=== PATIENT | female | born 1995 | race African-American/Black ===

== ENCOUNTER 2017-03-16 16:50 | Emergency (ER) | payer MEDICAID | END 2017-03-16 17:14 | disposition left against medical advice (07) | LOC: ER 16:50 | DX: Z53.21 Procedure and treatment not carried out due to patient leaving prior to being seen by health care provider (principal) ==

== ENCOUNTER 2017-04-09 10:42 | Emergency (ER) | payer MEDICAID ==
[2017-04-09 10:48] VITALS: BP 118/60
[2017-04-09] MEDS ORDERED: ACETAMINOPHEN 325 MG TABLET PO ONE (11:25)
--- NOTE | 2017-04-09 11:25 | ER Document Report ---
ED Medical Screen (RME) - General Chief Complaint: Abdominal Pain Stated Complaint: STOMACH PAIN Time Seen by Provider: 04/09/17 11:14 Mode of Arrival: Ambulatory Information source: Patient Notes: This is a 22-year-old female with a prior history of a first trimester miscarriage who is currently at 8+2 by LMP who presents for evaluation of lower abdominal pain and cramping. She states that she has had mild cramping for the past few days but that this morning she had an episode of severe abdominal pain. Also she states she has not had a bowel movement in 3 days. She has had mild nausea no vomiting. No fevers or chills. She denies any vaginal bleeding or discharge. She denies dysuria. She states that she has not had an ultrasound to this point in this . [facility]. She is taking vitamins. I have greeted and performed a rapid initial assessment of this patient. A comprehensive ED assessment and evaluation of the patient, analysis of test results and completion of the medical decision making process will be conducted by additional ED providers. TRAVEL OUTSIDE OF THE [place] IN LAST 30 DAYS: No - Related Data Allergies/Adverse Reactions: No Known Allergies Allergy (Verified 10/30/16 10:30) Past Medical History - Social History Family history: Reviewed & Not Pertinent Neurological Medical History: Reports: Hx Seizures Renal/ Medical History: Denies: Hx Peritoneal Dialysis - Immunizations Immunizations up to date: Yes Hx Diphtheria, Pertussis, Tetanus Vaccination: Yes Physical Exam - Vital signs Vitals: Temp Pulse Resp BP Pulse Ox 98.7 F 77 14 118/60 100 04/09/17 10:45 04/09/17 10:45 04/09/17 10:45 04/09/17 10:45 04/09/17 10:45 Course - Vital Signs Vital signs: Temp Pulse Resp BP Pulse Ox 98.7 F 77 14 118/60 100 04/09/17 10:45 04/09/17 10:45 04/09/17 10:45 04/09/17 10:45 04/09/17 10:45
[2017-04-09 11:55] LABS: ABSOLUTE EOSINOPHILS # (AUTO) 0.1 10^3/uL (0.0-0.6); ABSOLUTE MONOCYTES (AUTO) 0.6 10^3/uL (0.1-1.4); ABSOLUTE NEUT (AUTO) 2.9 10^3/uL (1.7-8.2); BASOPHILS % (AUTO) 0.7 % (0-2); EOSINOPHILS % (AUTO) 1.6 % (0-6); HEMATOCRIT 34.5 % (36.0-47.0); HEMOGLOBIN 11.1 g/dL (12.0-15.5); HGB HCT DIFFERENCE -1.2; LYMPHOCYTES % (AUTO) 35.6 % (13-45); MEAN CORPUSCULAR HEMOGLOBIN 21.5 pg (27.0-33.4); MEAN CORPUSCULAR VOLUME 67 fl (80-97); MONOCYTES % (AUTO) 11.2 % (3-13); RED BLOOD COUNT 5.13 10^6/uL (3.72-5.28); RED CELL DISTRIBUTION WIDTH 15.1 % (11.5-14.0); SEGMENTED NEUTROPHILS % (AUTO) 50.9 % (42-78); WHITE BLOOD COUNT 5.6 10^3/uL (4.0-10.5)
[2017-04-09 12:14] LABS: ALANINE AMINOTRANSFERASE 19 U/L (9-52); ALBUMIN 4.1 g/dL (3.5-5.0); ALKALINE PHOSPHATASE 45 U/L (38-126); ANION GAP 10 (5-19); ASPARTATE AMINO TRANSFERASE 16 U/L (14-36); BILIRUBIN,DIRECT 0.2 mg/dL (0.0-0.4); BILIRUBIN,TOTAL 0.4 mg/dL (0.2-1.3); BLOOD UREA NITROGEN 7 mg/dL (7-20); CALCIUM 9.5 mg/dL (8.4-10.2); CARBON DIOXIDE 24 mmol/L (22-30); CHLORIDE 103 mmol/L (98-107); CREATININE RESULT 0.61 mg/dL (0.52-1.25); GLUCOSE 78 mg/dL (75-110); POTASSIUM 4.1 mmol/L (3.6-5.0); SODIUM 137.2 mmol/L (137-145); TOTAL PROTEIN 7.3 g/dL (6.3-8.2)
--- NOTE | 2017-04-09 12:43 | RADIOLOGY REPORT (SQ) ---
EXAM DESCRIPTION: U/S OB TRANSVAG W/DOPPLER COMPLETED DATE/TIME: 04/09/2017 12:32 pm REASON FOR STUDY: lower abdominal pain, rule out ectopic COMPARISON: None. TECHNIQUE: Transvaginal static and realtime grayscale images acquired of the pelvis. Additional елена cted spectral and color Doppler images recorded. All images stored on PACs. bHCG: Not available. LIMITATIONS: None. FINDINGS: FETUS: Living intrauterine . EGA: 7 WEEKS 5 DAYS GILBERT: 11/21/2017 FHR: 157 beats per minute. SUBCHORIONIC BLEED: No. SIZE OF BLEED: Not applicable. UTERUS: No masses. No anomalies. CERVICAL LENGTH: 2.6 cm. Closed. RIGHT ADNEXA: Normal ovary with normal vascular flow. No adnexal free fluid. No adnexal masses. LEFT ADNEXA: Normal ovary with normal vascular flow. No adnexal free fluid. No adnexal masses. FREE FLUID: None. OTHER: No other significant finding. IMPRESSION: LIVING INTRAUTERINE . EGA 7 WEEKS 5 DAYS. Trimester of : First - 0 to 13 weeks. TECHNICAL DOCUMENTATION: JOB ID: [id number] [employer]- All Rights Reserved
[2017-04-09 13:41] LABS: APPEARANCE,URINE CLEAR; BILIRUBIN,URINE NEGATIVE (NEGATIVE); GLUCOSE, URINE NEGATIVE (NEGATIVE); KETONES,URINE 20 mg/dL (NEGATIVE); LEUKOCYTE ESTERASE,URINE NEGATIVE (NEGATIVE); NITRITE,URINE NEGATIVE (NEGATIVE); PROTEIN,URINE NEGATIVE (NEGATIVE); URINE SPECIFIC GRAVITY 1.015; UROBILINOGEN,URINE NEGATIVE mg/dL (<2.0)
--- NOTE | 2017-04-09 14:04 | ER Document Report ---
ED GI/ - General Chief Complaint: Abdominal Pain Stated Complaint: STOMACH PAIN Time Seen by Provider: 04/09/17 11:14 Mode of Arrival: Ambulatory Notes: There is a 8 week 22-year-old female presents emergency department complaining of abdominal pain and nausea for a couple of days. Admits to patient for the past couple of days as well. She denies any vaginal bleeding, vaginal discomfort, lower pelvic pain. She states that her abdominal pain is on the left side of her abdomen with occasional radiation into her stomach. Patient states that she has not followed up with [facility] yet and is established to see them on April 26. She has not had an ultrasound to confirm the . Denies any other past medical problems TRAVEL OUTSIDE OF THE [place] IN LAST 30 DAYS: No - Related Data Allergies/Adverse Reactions: No Known Allergies Allergy (Verified 10/30/16 10:30) Past Medical History - General Information source: Patient - Social History Smoking Status: Never Smoker Chew tobacco use (# tins/day): No Frequency of alcohol use: None Drug Abuse: None Family History: Reviewed & Not Pertinent Patient has suicidal ideation: No Patient has homicidal ideation: No Neurological Medical History: Reports: Hx Seizures Renal/ Medical History: Denies: Hx Peritoneal Dialysis - Immunizations Immunizations up to date: Yes Hx Diphtheria, Pertussis, Tetanus Vaccination: Yes Review of Systems - Review of Systems Gastrointestinal: See HPI Genitourinary: No symptoms reported Female Genitourinary: No symptoms reported -: Yes All other systems reviewed and negative Physical Exam - Vital signs Vitals: Temp Pulse Resp BP Pulse Ox 98.7 F 77 14 118/60 100 04/09/17 10:45 04/09/17 10:45 04/09/17 10:45 04/09/17 10:45 04/09/17 10:45 - Notes Notes: PHYSICAL EXAM GENERAL: Alert, interacts well. HEAD: Normocephalic, atraumatic. LUNGS: Clear to auscultation bilaterally, no wheezes, rales, or rhonchi. No respiratory distress. HEART: Regular rate and rhythm. No murmurs, gallops, or rubs. ABDOMEN: Soft, nondistended, nontender. No guarding, rebound, or rigidity.. Bowel sounds present in all 4 quadrants. Female exam deferred EXTREMITIES: Moves all 4 extremities spontaneously. No edema, radial and dorsalis pedis pulses 2/4 bilaterally. No cyanosis. NEUROLOGICAL: Alert and oriented x4. Normal speech. PSYCH: Normal affect, normal mood. SKIN: Warm, dry, normal turgor. No rashes or lesions noted. Course - Re-evaluation Re-evalutation: 04/09/17 18:21 Is a 22-year-old female who is hemodynamic stable, no acute distress and afebrile. Transvaginal ultrasound confirms an intrauterine at 7 weeks gestation with a heart rate of 157. No evidence of subchorionic bleed. Patient is otherwise stable for discharge home with instruction to follow-up with primary care and [facility] - Vital Signs Vital signs: Temp Pulse Resp BP Pulse Ox 98.7 F 77 14 118/60 100 04/09/17 10:45 04/09/17 10:45 04/09/17 10:45 04/09/17 10:45 04/09/17 10:45 - Laboratory Result Diagrams: 04/09/17 11:40 04/09/17 11:40 Laboratory results interpreted by me: 04/09/17 04/09/17 04/09/17 11:40 11:40 13:24 Hgb 11.1 L Hct 34.5 L MCV 67 L MCH 21.5 L RDW 15.1 H Beta HCG, Quant 33247.00 H Urine Ketones 20 H - Diagnostic Test Radiology reviewed: Reports reviewed Discharge - Discharge Clinical Impression: Abdominal pain during Condition: Good Disposition: HOME, SELF-CARE Additional Instructions: ABDOMINAL PAIN: There are many causes of abdominal pain. Pain can mean a serious problem requiring surgery (such as appendicitis). It can also be an innocent problem that goes away on its own (such as a viral infection). Often, time must pass to determine the cause of pain. The physician does not feel that hospitalization is necessary, at present. Things may change within the next 24 hours. Call the doctor or come back for re- examination if any problems occur, such as: (1) Pain that becomes more severe, steady, or becomes concentrated in one specific area. Also, pain that is more severe with movement or coughing. (2) Vomiting that persists or becomes more frequent. (3) Blood in the vomitus, urine, or bowel movements. Blood in the stool may have a tarry or black appearance. (4) Shaking chills or fever greater than 100 degrees F. (5) The abdomen becomes more distended or swollen. (6) Bowel movements cease. (7) Failure to improve as expected. NORMAL EXAM AND WORKUP: At this time, your examination and workup show no significant abnormality. No significant abnormal physical findings are noted. All laboratory, EKG, and imaging (x-ray, CT scans, ultrasound) studies that were ordered show no significant abnormality. Although your examination and all studies that were ordered showed no significant abnormal finding, there are no examinations and no studies that are 100% accurate. There is always the possibility that some abnormality could exist and not be detected with physical examination or within the limits and capabilities of laboratory and other studies. You should return or follow up as you were instructed on your visit today for further evaluation if your symptoms do not resolve. FOLLOW-UP CARE: If you have been referred to a physician for follow-up care, call the physician s office for an appointment as you were instructed or within the next two days. If you experience worsening or a significant change in your symptoms, notify the physician immediately or return to the Emergency Department at any time for re-evaluation. Forms: Parent Work Note, Return to Work Referrals: [facility] [Provider Group] - Follow up as needed
== END 2017-04-09 14:27 | disposition home or self-care (01) ==
LOC: ER 10:42
DX: R10.9 Unspecified abdominal pain (principal); R11.0 Nausea
CPT/HCPCS: 99284; 36415; 84702; 85025; 80053; 81001; 76817; 93976; J3490

== ENCOUNTER 2017-05-24 12:08 | Emergency (ER) | payer MEDICAID ==
[2017-05-24 12:13] VITALS: BP 127/56
--- NOTE | 2017-05-24 12:26 | ER Document Report ---
ED GI/ - General Chief Complaint: Abdominal Pain Stated Complaint: FALL,STOMACH PAIN Time Seen by Provider: 05/24/17 12:24 Notes: Patient is approximately 15 weeks and fell down about 5 steps yesterday afternoon. She landed primarily on her left side. This morning, she is complaining of pain in the left side and points to the left lateral abdominal region, not pelvic region. She has not felt the baby move today and is concerned about her . She has not had any vaginal bleeding. Patient has a seizure disorder and is on Vimpat and Keppra. No other significant history. TRAVEL OUTSIDE OF THE [place] IN LAST 30 DAYS: No - Related Data Allergies/Adverse Reactions: No Known Allergies Allergy (Verified 05/24/17 12:13) Past Medical History - Social History Family History: Reviewed & Not Pertinent Patient has suicidal ideation: No Patient has homicidal ideation: No Neurological Medical History: Reports: Hx Seizures Renal/ Medical History: Denies: Hx Peritoneal Dialysis - Immunizations Immunizations up to date: Yes Hx Diphtheria, Pertussis, Tetanus Vaccination: Yes Physical Exam - Vital signs Vitals: Temp Pulse Resp BP Pulse Ox 98.1 F 82 20 127/56 H 98 05/24/17 12:12 05/24/17 12:12 05/24/17 12:12 05/24/17 12:12 05/24/17 12:12 Course - Vital Signs Vital signs: Temp Pulse Resp BP Pulse Ox 98.1 F 82 20 127/56 H 98 05/24/17 12:12 05/24/17 12:12 05/24/17 12:12 05/24/17 12:12 05/24/17 12:12
--- NOTE | 2017-05-24 12:34 | ER Document Report ---
ED Medical Screen (RME) - General Chief Complaint: Abdominal Pain Stated Complaint: FALL,STOMACH PAIN Time Seen by Provider: 05/24/17 12:24 Notes: Patient is approximately 15 weeks and fell down about 5 steps yesterday afternoon. She landed primarily on her left side. This morning, she is complaining of pain in the left side and points to the left lateral abdominal region, not pelvic region. She has not felt the baby move today and is concerned about her . She has not had any vaginal bleeding. Patient has a seizure disorder and is on Vimpat and Keppra. No other significant history TRAVEL OUTSIDE OF THE [place] IN LAST 30 DAYS: No - Related Data Allergies/Adverse Reactions: No Known Allergies Allergy (Verified 05/24/17 12:13) Past Medical History - Social History Family history: Reviewed & Not Pertinent Neurological Medical History: Reports: Hx Seizures Renal/ Medical History: Denies: Hx Peritoneal Dialysis - Immunizations Immunizations up to date: Yes Hx Diphtheria, Pertussis, Tetanus Vaccination: Yes Physical Exam - Vital signs Vitals: Temp Pulse Resp BP Pulse Ox 98.1 F 82 20 127/56 H 98 05/24/17 12:12 05/24/17 12:12 05/24/17 12:12 05/24/17 12:12 05/24/17 12:12 Course - Vital Signs Vital signs: Temp Pulse Resp BP Pulse Ox 98.1 F 82 20 127/56 H 98 05/24/17 12:12 05/24/17 12:12 05/24/17 12:12 05/24/17 12:12 05/24/17 12:12
--- NOTE | 2017-05-24 12:58 | ER Document Report ---
ED GI/ - General Chief Complaint: Abdominal Pain Stated Complaint: FALL,STOMACH PAIN Time Seen by Provider: 05/24/17 12:24 Mode of Arrival: Ambulatory Information source: Patient Notes: 11-year-old female presents to ED for fall at 15 weeks . She just wants the baby checked out she fell down the steps yesterday afternoon. She landed on her left side. Time she does not complain of any pain she states she was concerned for the baby. She not denies any vaginal bleeding. Patient has a history of a seizure disorder and is on Vimpat and Keppra. Patient is 1 para 0 TRAVEL OUTSIDE OF THE [place] IN LAST 30 DAYS: No - HPI Patient complains to provider of: Abdominal pain - left abdominal pain level 1 unless pushed then becomes a 2 or 3 Onset: Yesterday Quality of pain: Other - sore Severity at maximum: Moderate - when pushed Severity in ED: Mild Pain Level: 1 Location: LUQ Vaginal bleeding (Compared to normal period): None heart tones (bpm): 152 Associated symptoms: None Exacerbated by: Movement, Other - palpaitetn Relieved by: Denies Similar symptoms previously: No Recently seen / treated by doctor: Yes - Related Data Allergies/Adverse Reactions: No Known Allergies Allergy (Verified 05/24/17 12:13) Past Medical History - General Information source: Patient - Social History Smoking Status: Never Smoker Cigarette use (# per day): No Chew tobacco use (# tins/day): No Smoking Education Provided: No Frequency of alcohol use: None Drug Abuse: None Lives with: Family Family History: Reviewed & Not Pertinent Patient has suicidal ideation: No Patient has homicidal ideation: No - Past Medical History Cardiac Medical History: Reports: None Pulmonary Medical History: Reports: None EENT Medical History: Reports: None Neurological Medical History: Reports: Hx Seizures Endocrine Medical History: Reports: None Renal/ Medical History: Reports: None Malignancy Medical History: Reports: None GI Medical History: Reports: None Musculoskeltal Medical History: Reports None Skin Medical History: Reports None Psychiatric Medical History: Reports: None Traumatic Medical History: Reports: None Infectious Medical History: Reports: None Surgical Hx: Negative - Immunizations Immunizations up to date: Yes Hx Diphtheria, Pertussis, Tetanus Vaccination: Yes Review of Systems - Review of Systems Constitutional: No symptoms reported EENT: No symptoms reported Cardiovascular: No symptoms reported Respiratory: No symptoms reported Gastrointestinal: Abdominal pain - luq Genitourinary: No symptoms reported Female Genitourinary: No symptoms reported Musculoskeletal: No symptoms reported Skin: No symptoms reported. denies: Change in color Hematologic/Lymphatic: No symptoms reported Neurological/Psychological: No symptoms reported -: Yes All other systems reviewed and negative Physical Exam - Vital signs Vitals: Temp Pulse Resp BP Pulse Ox 98.1 F 82 20 127/56 H 98 05/24/17 12:12 05/24/17 12:12 05/24/17 12:12 05/24/17 12:12 05/24/17 12:12 Interpretation: Normal - General General appearance: Appears well, Alert - HEENT Head: Normocephalic, Atraumatic Eyes: Normal Pupils: PERRL - Respiratory Respiratory status: No respiratory distress Chest status: Nontender Breath sounds: Normal Chest palpation: Normal - Cardiovascular Rhythm: Regular Heart sounds: Normal auscultation Murmur: No - Abdominal Inspection: Normal Distension: No distension Bowel sounds: Normal Tenderness: Tender - to palpatient Organomegaly: No organomegaly - Back Back: Normal, Nontender - Extremities General upper extremity: Normal inspection, Nontender, Normal color, Normal ROM , Normal temperature General lower extremity: Normal inspection, Nontender, Normal color, Normal ROM , Normal temperature, Normal weight bearing. No: Dudley's sign - Neurological Neuro grossly intact: Yes Cognition: Normal Orientation: AAOx4 Christophe Coma Scale Eye Opening: Spontaneous Christophe Coma Scale Verbal: Oriented Brook Coma Scale Motor: Obeys Commands Christophe Coma Scale Total: 15 Speech: Normal Motor strength normal: LUE, RUE, LLE, RLE Sensory: Normal - Psychological Associated symptoms: Normal affect, Normal mood - Skin Skin Temperature: Warm Skin Moisture: Dry Skin Color: Normal Course - Vital Signs Vital signs: Temp Pulse Resp BP Pulse Ox 98.1 F 82 20 127/56 H 98 05/24/17 12:12 05/24/17 12:12 05/24/17 12:12 05/24/17 12:12 05/24/17 12:12 Discharge - Discharge Clinical Impression: Fall (on) (from) other stairs and steps, initial encounter, minimal abdominal pain Condition: Stable Disposition: HOME, SELF-CARE Additional Instructions: CONTUSION: Your injury has resulted in a contusion -- a crushing of the deep tissues. No injury to important structures was detected during the physician's exam. Contusions vary in the amount of pain they cause, and in the length of time required for healing. Typically, the area will become bruised, and will remain painful to touch for two or three weeks. However, most patients are back to working and playing within a few days. After the initial period of rest and cold-packs, your symptoms (together with the doctor's recommendations) will determine how rapidly you can get back to full activity. Usually this means "do what feels okay, but don't do things that hurt." If re-examination was recommended, it's important to follow up as instructed. Call the doctor or return any time if pain increases, if swelling becomes severe, if you develop numbness or weakness in an injured extremity, or if any other alarming symptoms occur. USE OF TYLENOL (ACETAMINOPHEN): Acetaminophen may be taken for pain relief or fever control. It's much safer than aspirin, offering a wider range of "safe" dosages. It is safe during . Some brand names are Tylenol, Panadol, Datril, Anacin 3, Tempra, and Liquiprin. Acetaminophen can be repeated every four hours. The following are maximum recommended dosages: WEIGHT Dose Drops Elixir Chewable( 80mg) (LBS.) drprs=droppers tsp=teaspoon 6 40 mg 0.4 ml (1/2) 6-11 80 mg 0.8 ml (full) tsp 1 tab 12-16 120 mg 1 1/2 drprs 3/4 tsp 1 1/2 tabs 17-23 160 mg 2 drprs 1 tsp 2 tabs 24-30 240 mg 3 drprs 1 1/2 tsp 3 tabs 30-35 320 mg 2 tsp 4 tabs 36-41 360 mg 2 1/4 tsp 4 1/2 tabs 42-47 400 mg 2 1/2 tsp 5 tabs 48-53 480 mg 3 tsp 6 tabs 54-59 520 mg 3 1/4 tsp 6 1/2 tabs 60-64 560 mg 3 1/2 tsp 7 tabs 65-70 600 mg 3 3/4 tsp 7 1/2 tabs 71-76 640 mg 4 tsp 8 tabs 77-82 720 mg 4 1/2 tsp 9 tabs 83-88 800 mg 5 tsp 10 tabs >89 pounds or adults 650 mg to 900 mg Acetaminophen can be repeated every four hours. Maximum dose not to exceed 4000 mg a day. These maximum recommended dosages are slightly higher than the dosages written on the product container, but these dosages are very safe and below the toxic dosage for acetaminophen. Follow up with your [facility] or the ED if you develop any vaginal bleeding increase in pain. FOLLOW-UP CARE: If you have been referred to a physician for follow-up care, call the physician s office for an appointment as you were instructed or within the next two days. If you experience worsening or a significant change in your symptoms, notify the physician immediately or return to the Emergency Department at any time for re-evaluation. Forms: Elevated Blood Pressure Referrals: [facility] [Provider Group] - Follow up as needed
== END 2017-05-24 13:05 | disposition home or self-care (01) ==
LOC: ER 12:08
DX: R10.9 Unspecified abdominal pain (principal); Z3A.15 15 weeks gestation of pregnancy; W10.9XXA Fall (on) (from) unspecified stairs and steps, initial encounter; G40.909 Epilepsy, unspecified, not intractable, without status epilepticus; Z79.899 Other long term (current) drug therapy
CPT/HCPCS: 99283

== ENCOUNTER 2017-10-02 20:01 | Outpatient (CLI) | payer MEDICAID ==
[2017-10-02 20:30] LABS: AMORPHOUS SEDIMENT,URINE TRACE /HPF; APPEARANCE,URINE CLOUDY; BILIRUBIN,URINE NEGATIVE (NEGATIVE); GLUCOSE, URINE NEGATIVE (NEGATIVE); KETONES,URINE NEGATIVE (NEGATIVE); LEUKOCYTE ESTERASE,URINE NEGATIVE (NEGATIVE); NITRITE,URINE NEGATIVE (NEGATIVE); PROTEIN,URINE NEGATIVE (NEGATIVE)
[2017-10-02 20:33] LABS: AMNISURE (ROM) NEGATIVE (NEGATIVE)
[2017-10-02 20:45] LABS: URINE BARBITURATES SCREEN NEGATIVE; URINE METHADONE SCREEN NEGATIVE; URINE OPIATES LOW NEGATIVE; URINE PHENCYCLIDINE SCREEN NEGATIVE
--- NOTE | 2017-10-02 21:16 | Non Stress Test Report ---
Non Stress Test Datetime Report Generated by CPN: 10/02/2017 21:16 DEMOGRAPHIC EGA NST: 33.2 INDICATION Indication for Study: Ordered by Provider MONITORING Monitor Explained: Monitor Explained; Test Explained; Patient Verbalized Understanding Time on Monitor: 10/02/2017 20:19 Time off Monitor: 10/02/2017 21:07 NST Duration: 48 NST INTERVENTIONS NST Interventions: PO Hydration; Reposition Patient Physician Notified NST: Dr. Morales BABY A: [id number] BABY A Movement : Present Contraction Frequency : 0 FHR Baseline : 130 Accelerations : 15X15 Decelerations : None Variability : Moderate 6-25bpm NST Review: Meets Criteria for Reactive NST NST Review and Verified By : Uvaldo Bedolla RN NST Results: Reactive NST REPORT Report Trigger: Send Report
== END 2017-10-02 21:15 | disposition home or self-care (01) ==
LOC: LC 20:01
PROVIDERS: ATTEND Obstetrics & Gynecology
DX: O47.03 False labor before 37 completed weeks of gestation, third trimester (principal); Z3A.33 33 weeks gestation of pregnancy
CPT/HCPCS: 59025; 80307; 81001; 84112

== ENCOUNTER 2017-11-14 09:54 | Outpatient (CLI) | payer MEDICAID ==
[2017-11-14 10:33] LABS: APPEARANCE,URINE SLIGHTLY-CLOUDY; BILIRUBIN,URINE NEGATIVE (NEGATIVE); COLOR,URINE YELLOW; GLUCOSE, URINE NEGATIVE (NEGATIVE); KETONES,URINE NEGATIVE (NEGATIVE); LEUKOCYTE ESTERASE,URINE NEGATIVE (NEGATIVE); NITRITE,URINE NEGATIVE (NEGATIVE); PROTEIN,URINE NEGATIVE (NEGATIVE); URINE SPECIFIC GRAVITY 1.006; UROBILINOGEN,URINE NEGATIVE mg/dL (<2.0)
[2017-11-14 10:49] LABS: URINE AMPHETAMINES SCREEN NEGATIVE; URINE BARBITURATES SCREEN NEGATIVE; URINE BENZODIAZEPINES SCREEN NEGATIVE; URINE COCAINE SCREEN NEGATIVE; URINE METHADONE SCREEN NEGATIVE; URINE PHENCYCLIDINE SCREEN NEGATIVE
[2017-11-14 10:50] LABS: URINE MARIJUANA (THC) SCREEN NEGATIVE
--- NOTE | 2017-11-14 11:18 | L&D Progress Notes ---
PROGRESS NOTES Datetime Report Generated by CPN: 11/14/2017 11:18 PROGRESS NOTE Comment: 22 yo presents with pressure and contractions EDC 11/18/17 EGA 39.4 history of seizure disorder on Keppra reports last episode small seizure a few weeks ago seen by neuro ctxs- 1 seen uterine irritability ft/ 50/-3 per RN appt tomorrow at office d/c home with instructions/ fkc/ labor precautions FETUS A Monitoring: External US Variability: Moderate 6-25bpm Accelerations: 15X15 SIGNATURE SIGNATURE: [id number] SIGNATURE: [id number] Assignment: Brinda Landon MD Signature: with User ID: Shadi : with User ID: [email or web address]
--- NOTE | 2017-11-14 11:40 | Non Stress Test Report ---
Non Stress Test Datetime Report Generated by CPN: 11/14/2017 11:40 DEMOGRAPHIC EGA NST: 39.3 INDICATION Indication for Study: Ordered by Provider Indication for Study (NST) Other: labor check MONITORING Monitor Explained: Monitor Explained; Test Explained; Patient Verbalized Understanding Time on Monitor: 11/14/2017 10:20 Time off Monitor: 11/14/2017 11:13 NST Duration: 53 NST INTERVENTIONS NST Interventions: PO Hydration Physician Notified NST: A. Emmel CNM BABY A: [id number] BABY A Movement : Present Contraction Frequency : none FHR Baseline : 145 Accelerations : 15X15 Decelerations : None Variability : Moderate 6-25bpm NST Review: Meets Criteria for Reactive NST NST Review and Verified By : Jose Manuel Haas RN NST Results: Reactive NST REPORT Report Trigger: Send Report
== END 2017-11-14 11:30 | disposition home or self-care (01) ==
LOC: LC 09:54
PROVIDERS: ATTEND Student in an Organized Health Care Education/Training Program
PROC: 4A1HXCZ Monitoring of Products of Conception, Cardiac Rate, External Approach (ICD-10-PCS; principal; 2017-11-14)
DX: O47.1 False labor at or after 37 completed weeks of gestation (principal); Z3A.39 39 weeks gestation of pregnancy
CPT/HCPCS: 59025; 80307; 81005

== ENCOUNTER 2017-11-19 13:43 | Inpatient (IN) | payer MEDICAID ==
[2017-11-19] MEDS ORDERED: RINGERS SOLUTION,LACTATED 1,000 ML IV PRN (13:59)
[2017-11-19 15:01] LABS: APPEARANCE,URINE SLIGHTLY-CLOUDY; BILIRUBIN,URINE NEGATIVE (NEGATIVE); COLOR,URINE YELLOW; GLUCOSE, URINE NEGATIVE (NEGATIVE); KETONES,URINE NEGATIVE (NEGATIVE); LEUKOCYTE ESTERASE,URINE TRACE (NEGATIVE); NITRITE,URINE NEGATIVE (NEGATIVE); PROTEIN,URINE NEGATIVE (NEGATIVE); URINE SPECIFIC GRAVITY 1.005; UROBILINOGEN,URINE NEGATIVE mg/dL (<2.0)
[2017-11-19 15:17] LABS: URINE AMPHETAMINES SCREEN NEGATIVE; URINE BARBITURATES SCREEN NEGATIVE; URINE BENZODIAZEPINES SCREEN NEGATIVE; URINE COCAINE SCREEN NEGATIVE; URINE MARIJUANA (THC) SCREEN NEGATIVE; URINE METHADONE SCREEN NEGATIVE; URINE PHENCYCLIDINE SCREEN NEGATIVE
[2017-11-19] MEDS ORDERED: OXYTOCIN/NORMAL SALINE 20 UNIT/1,000 ML RTUINJ ONE (17:13)
[2017-11-19] MEDS ORDERED: MISOPROSTOL 0.2 MG TABLET ONE (17:13)
[2017-11-19] MEDS ORDERED: LIDOCAINE 1% INJ-PF (10 MG/ML) 30 ML SDV ONE (17:13)
[2017-11-19] MEDS: OXYTOCIN/NORMAL SALINE 20 UNIT/1,000 ML RTUINJ IV PRN ×2 (17:55→22:01)
[2017-11-19] MEDS ORDERED: PROMETHAZINE HCL INJ 25 MG/1 ML VIAL IV ONE (18:09)
[2017-11-19] MEDS ORDERED: NALBUPHINE HCL INJ 10 MG/1 ML AMPULE INJ ONE (18:09)
[2017-11-19] MEDS ORDERED: ONDANSETRON HCL INJ/PF 4 MG/2 ML SDV IV ONE (18:12)
[2017-11-19] MEDS ORDERED: NALBUPHINE HCL INJ 10 MG/1 ML AMPULE ONE (18:13)
[2017-11-19] MEDS ORDERED: PROMETHAZINE HCL INJ 25 MG/1 ML VIAL ONE (18:13)
[2017-11-19] MEDS ORDERED: ONDANSETRON HCL INJ/PF 4 MG/2 ML SDV ONE (18:14)
[2017-11-19] MEDS ORDERED: DIPH/PERTUSS(ACELL)/TETANUS VAC/PF 0.5 ML SYR (>=10YO) IM PRN ×2 (21:36→22:52)
[2017-11-19] MEDS ORDERED: DIBUCAINE 1% OINTMENT 28 GM TP PRN ×2 (21:36→22:52)
[2017-11-19] MEDS ORDERED: ZOLPIDEM TARTRATE 5 MG TABLET PO PRN ×2 (21:36→22:52)
[2017-11-19] MEDS ORDERED: PSEUDOEPHEDRINE HCL 30 MG TABLET PO PRN ×2 (21:36→22:52)
[2017-11-19] MEDS ORDERED: NA PHOS,M-B/NA PHOS,DI-BA (ADULT) 133 ML ENEMA PR PRN ×2 (21:36→22:52)
[2017-11-19] MEDS ORDERED: MAGNESIUM HYDROXIDE SUSP 30 ML UDCUP PO PRN ×2 (21:36→22:52)
[2017-11-19] MEDS ORDERED: MEASLES,MUMPS&RUBELLA VACC/PF 0.5 ML VIAL SUBCUT PRN ×2 (21:36→22:52)
[2017-11-19] MEDS ORDERED: BENZOCAINE/MENTHOL AEROSOL SPRAY 56 ML TOP PRN ×2 (21:36→22:52)
[2017-11-19] MEDS ORDERED: DIPHENHYDRAMINE HCL 25 MG CAPSULE PO PRN ×2 (21:36→22:52)
[2017-11-19] MEDS ORDERED: OXYTOCIN/NORMAL SALINE 20 UNIT/1,000 ML RTUINJ IV PRN (21:36)
[2017-11-19] MEDS ORDERED: GLYCERIN/WITCH HAZEL LEAF 1 EACH MED..PAD TP PRN ×2 (21:36→22:52)
[2017-11-19] MEDS ORDERED: ACETAMINOPHEN 650 MG SUPP.RECT PR PRN ×2 (21:36→22:52)
[2017-11-19] MEDS ORDERED: PROMETHAZINE HCL 25 MG TABLET PO PRN ×2 (21:36→22:52)
[2017-11-19] MEDS ORDERED: PROMETHAZINE HCL 25 MG SUPP.RECT PR PRN ×2 (21:36→22:52)
[2017-11-19] MEDS ORDERED: PROMETHAZINE HCL INJ 25 MG/1 ML VIAL IV PRN ×2 (21:36→22:52)
[2017-11-19] MEDS ORDERED: FAMOTIDINE 20 MG TABLET PO SCH (22:00)
[2017-11-19] MEDS ORDERED: IBUPROFEN 800 MG TABLET PO SCH (22:00)
--- NOTE | 2017-11-19 22:33 | Delivery Summary ---
Del Sum A-C Datetime Report Generated by CPN: 11/19/2017 22:33 DELIVERY PERSONNEL DELIVERY PERSONNEL: [id number] Delivery Doctor:: Alfredo Louis CNM Labor and Delivery Nurse:: Ophelia Hager RNshot polisher Nurse:: Ruby Sosa RN [employer] Assistant Principal/SERVICE DEPARTMENT MANAGER: Lilliana Semar, SUPERVISOR [employer] MATERNAL INFORMATION Delivery Anesthesia: None Medications After Delivery: Pitocin Bolus-Please Comment; Pitocin Drip 20 Units/1000ml NSS Estimated Blood Loss (ml): 300 Maternal Complications: None Provider Comments: delivery of viable male apgars 5/7 bulb suctioned on perineum LUKE to abdomen tactile stimulaton elicits spont cry nursery nurse at [facility] placenta intact - delivered le right superficial labial tear repaired with 3 interrupted stitches- 3.0 chromic gut EBL 300 cc hemostasis achieved LABOR SUMMARY EDC: 11/18/2017 00:00 No. Babies in Womb: 1 Attempted: No Labor Anesthesia: None LABOR INFORMATION Reason for Induction: Not Applicable Onset of Labor: 11/19/2017 17:48 Complete Dilatation: 11/19/2017 20:53 Oxytocin: Augmentation Group B Beta Strep: neg Steroids Given: None Reason Steroids Not Administered: Not Applicable MEMBRANES Membranes Rupture Method: Spontaneous Rupture of Membranes: 11/19/2017 15:00 Length of Rupture (hr): 6.05 Amniotic Fluid Color: Clear Amniotic Fluid Amount: Moderate STAGES OF LABOR Stage 1 hr: 3 Stage 1 min: 5 Stage 2 hr: 0 Stage 2 min: 10 Stage 3 hr: 0 Stage 3 min: 2 Total Time in Labor hr: 3 Total Time in Labor min: 17 VAGINAL DELIVERY Laceration Repair Note: right labial laceration x 3 interrupted stitches CSECTION DELIVERY Primary Indication: N/A Secondary Indication: N/A CSection Incidence: N/A Labor: N/A Elective: N/A CSection Incision: N/A BABY A INFORMATION Delivery Date/Time: 11/19/2017 21:03 Method of Delivery: Vaginal Born in Route : No : N/A Forceps: N/A Vacuum Extraction: N/A Shoulder Dystocia : No PRESENTATION/POSITION BABY A Presentation: Cephalic Cephalic Presentation: Vertex Vertex Position: Right Occipital Anterior Breech Presentation: N/A PLACENTA INFORMATION BABY A Placenta Delivery Time : 11/19/2017 21:05 Placenta Method of Delivery: Spontaneous Placenta Status: Delivered SCORES BABY A Heart Rate 1 min: >100 bpm Resp Effort 1 min: Slow, Irregular Reflex Irritability 1 min: Grimace Muscle Tone 1 min: Some Flexion of Extremities Color 1 min: Blue/Pale Resuscitation Effort 1 min: Tactile Stimulation SCORE 1 MIN: 5 Heart Rate 5 min: >100 bpm Resp Effort 5 min: Slow, Irregular Reflex Irritability 5 min: Grimace Muscle Tone 5 min: Some Flexion of Extremities Color 5 min: Body [place], Extremities Blue Resuscitation Effort 5 min: Tactile Stimulation; PPV/NCPAP SCORE 5 MIN: 6 Heart Rate 10 min: >100 bpm Resp Effort 10 min: Good Cry Reflex Irritability 10 min: Cough or Sneeze or Pulls Away Muscle Tone 10 min: Active Motion Color 10 min: Completely [place] Resuscitation Effort 10 min: N/A SCORE 10 MIN: 10 INFANT INFORMATION BABY A Gestational Age at Delivery: 40.1 Gestational Status: Full Term- 39- 40.6 Weeks Infant Outcome : Liveborn Infant Condition : Stable Infant Sex: Male IDENTIFICATION BABY A Infant Verification Date/Time: 11/19/2017 21:09 ID Band Number: [id number] Mother's Name Verified: Yes Infant RN Verifying : Rebecca Garcia RN Additional Verifying Personnel: DDominic Amrit WEIGHT/LENGTH BABY A Birthweight (gm): 3180 Weight (lb): 7 Infant Weight (oz): 0 Length (in): 20.25 Infant Length (cm): 51.44 CORD INFORMATION BABY A No. Cord Vessels: 3 Nuchal Cord : N/A Cord Blood Taken: Yes-For Eval (Mom's Blood Type - or O+) Suction: Mouth; Nose ASSESSMENT BABY A Infant Complications: None Physical Findings at Delivery: Molding of the Head Respirations: Grunting Skin to Skin: No Customer Support Analyst/ALS Called : No Infant Care By: ViktoriaDominic Srikanthalonso RN/B. Richard RN Transferred To: Nursery BABY B INFORMATION : N/A SIGNATURES Assignment: Neel Aragon MD Signature: with User ID: [email or web address] : with User ID: [email or web address]
[2017-11-19] MEDS ORDERED: ACETAMINOPHEN WITH CODEINE #3 TABLET PO PRN ×2 (22:52)
--- NOTE | 2017-11-20 00:17 | Admission Physical ---
Datetime Report Generated by CPN: 11/20/2017 00:17 CURRENT ADMISSION Chief Complaint: Uterine Contractions Indication for Induction: Postterm, Intrauterine Admit Plan: Admit to Unit; Initiate Labor Augmentation Protocol ALLERGIES Medication Allergies: No Medication Allergies: No Known Allergies (05/24/2017) Latex: No Latex Allergies Food Allergies: None Environmental Allergies: None OBSTETRICAL HISTORY EDC: 11/18/2017 00:00 : 1 Para: 0 Term: 0 : 0 SAB: 0 IAB: 0 Ectopic: 0 Livin Cesareans: 0 VBACs: 0 Multiple Births: 0 Gestational Diabetes: No Rh Sensitization: No Incompetent Cervix: No OTIS: No Infertility: No ART Treatment: No Uterine Anomaly: No IUGR: No Hx Previous C/S: No Macrosomia: No Hx Loss/Stillborn: No PIH: No Hx : No Placenta Previa/Abruption: No Depression/PP Depression: No PTL/PROM: No Post Hemorrhage: No Current Procedures: Ultrasound Obstetrical History Comments: G1 - Current SEE RECORDS Alcohol: No Marijuana : No Cocaine: No Other Illicit Drugs: No Cigarettes: Never Smoker. [id number] MEDICAL HISTORY Diabetes: No Blood Transfusion: No Pulmonary Disease (Asthma, TB): No Breast Disease: No Hypertension: No University Dean Surgery: No Heart Disease: No Hosp/Surgery: No Autoimmune Disorder: No Anesthetic Complications: No Kidney Disease: No Abnormal Pap Smear: No Neuro/Epilepsy: Yes Psychiatric Disorders: No Other Medical Diseases: No Hepatitis/Liver Disease: No Significant Family History: No Varicosities/Phlebitis: No Trauma/Violence : No Thyroid Dysfunction: No Medical History Comments: Seizures INFECTIOUS HISTORY Gonorrhea: No Genital Herpes: No Chlamydia: No Tuberculosis: No Syphilis: No Hepatitis: No HIV/AIDS Exposure: No Rash or Viral Illness: No HPV: No PHYSICAL EXAM General: Normal HEENT: Normal Neurologic: Normal Thyroid: Normal Heart: Normal Lungs: Normal Breast: Normal Back: Normal Abdomen: Normal Genitourinary Exam: Normal Extremities: Normal DTRs: Normal Pelvic Type: Adequate Vital Signs: Reviewed MEMBRANES Membranes: Ruptured Amniotic Fluid Color: Clear FETUS A EGA: 40.1 Monitoring: External US FHR- Baseline: 130 Variability: Moderate 6-25bpm Accelerations: 15X15 Decelerations: None FHR Category: Category I Admit Comment: 22 yo admitted for srom with exam EDC 11/18/17 by lmp ad confirmed by 7 w 5 day u/s abdomen nontender FHts 130s average variability cvx 4/80/0 clear fluid spontaneous rupture seizure disorder- none this / followed by neurologist/ no meds poc and history reviewed with pt and family pain management prn anticipate admit PLANS FOR LABOR AND DELIVERY Labor and Delivery: None Pain Management: Epidural Feeding Preference: Both Benefit of Breast Feed Discussed: Yes Circumcision: Yes INFORMED CONSENT Assignment: Neel Aragon MD Signature: with User ID: [email or web address] : with User ID: [email or web address]
[2017-11-20] MEDS: IBUPROFEN 800 MG TABLET PO SCH ×3 (06:01→21:45)
[2017-11-20 07:15] LABS: HEMATOCRIT 29.7 % (36.0-47.0); HEMOGLOBIN 9.3 g/dL (12.0-15.5); MEAN CORPUSCULAR HEMOGLOBIN 21.9 pg (27.0-33.4); MEAN CORPUSCULAR HGB CONC 31.3 g/dL (32.0-36.0); MEAN CORPUSCULAR VOLUME 70 fl (80-97); PLATELET COUNT 156 10^3/uL (150-450); RED BLOOD COUNT 4.25 10^6/uL (3.72-5.28); RED CELL DISTRIBUTION WIDTH 17.4 % (11.5-14.0)
--- NOTE | 2017-11-20 09:12 | PDOC PROGRESS REPORT ---
Subjective-OB Subjective: Post Delivery Day: 22 year old. Denies any needs at this time Doing well, no c/o, hsb at BS, voiding, ambulating, scant lochia Physical Exam (OB) Vital Signs: Temp Pulse Resp BP Pulse Ox 97.9 F 66 15 125/67 100 11/20/17 08:22 11/20/17 08:22 11/20/17 08:22 11/20/17 08:22 11/20/17 08:22 Intake & Output 11/19/17 11/20/17 11/21/17 06:59 06:59 06:59 Intake Total 300 Balance 300 Weight 90.7 kg - Lochia Lochia Amount: Scant < 10 ml Lochia Color: Rubra/Red - Abdomen Description: Soft, Round Hernia Present: No Fundal Description: Firm, Midline Fundal Height: u/u - u/2 Objective-Diagnostic Laboratory: 11/20/17 07:07 11/19/17 11/19/17 11/20/17 13:56 15:56 07:07 WBC 17.0 H RBC 4.25 Hgb 9.3 L Hct 29.7 L MCV 70 L MCH 21.9 L MCHC 31.3 L RDW 17.4 H Plt Count 156 Urine Color YELLOW Urine Appearance SLIGHTLY-CLOUDY Urine pH 6.0 Ur Specific [place] 1.005 Urine Protein NEGATIVE Urine Glucose (UA) NEGATIVE Urine Ketones NEGATIVE Urine Blood SMALL H Urine Nitrite NEGATIVE Ur Leukocyte Esterase TRACE H Blood Type B POSITIVE Antibody Screen NEGATIVE Assessment and Plan(PN) - Assessment and Plan (1) Normal vaginal delivery Is this a current diagnosis for this admission?: Yes - Time Spent with Patient Time with patient: Less than 15 minutes Medications reviewed and adjusted accordingly: Yes - Disposition Within: within 24 hours
[2017-11-20] MEDS: PRENATAL VITAMIN W DHA CAPSULE PO SCH (09:54)
[2017-11-20] MEDS ORDERED: DOCUSATE SODIUM 100 MG CAPSULE PO SCH (10:00)
[2017-11-20] MEDS ORDERED: SENNOSIDES/DOCUSATE 8.6-50 MG 1 EACH TABLET PO SCH (10:00)
[2017-11-20] MEDS ORDERED: FERROUS SULFATE 325 MG TABLET PO SCH (10:00)
[2017-11-20] MEDS ORDERED: PRENATAL VITAMIN W DHA CAPSULE PO SCH (10:00)
[2017-11-20] MEDS: SENNOSIDES/DOCUSATE 8.6-50 MG 1 EACH TABLET PO SCH (11:09)
[2017-11-20] MEDS: FERROUS SULFATE 325 MG TABLET PO SCH ×2 (11:09→17:33)
[2017-11-20] MEDS: FAMOTIDINE 20 MG TABLET PO SCH ×2 (11:09→21:45)
[2017-11-20] MEDS: DOCUSATE SODIUM 100 MG CAPSULE PO SCH ×2 (11:09→17:33)
[2017-11-21] MEDS: IBUPROFEN 800 MG TABLET PO SCH ×2 (05:57→14:03)
[2017-11-21] MEDS: FAMOTIDINE 20 MG TABLET PO SCH (09:25)
[2017-11-21] MEDS: FERROUS SULFATE 325 MG TABLET PO SCH (09:33)
[2017-11-21] MEDS: DOCUSATE SODIUM 100 MG CAPSULE PO SCH (09:33)
[2017-11-21] MEDS: SENNOSIDES/DOCUSATE 8.6-50 MG 1 EACH TABLET PO SCH (09:33)
[2017-11-21] MEDS: PRENATAL VITAMIN W DHA CAPSULE PO SCH (09:33)
[2017-11-21 11:29] VITALS: BP 125/63
--- NOTE | 2017-11-21 13:56 | PDOC DISCHARGE SUMMARY ---
Final Diagnosis Discharge Date: 11/21/17 - Final Diagnosis (1) Anemia affecting first Is this a current diagnosis for this admission?: Yes (2) Normal vaginal delivery Is this a current diagnosis for this admission?: Yes Discharge Data - Discharge Medication Prescriptions: Ibuprofen [Motrin 800 mg Tablet] 800 mg PO Q8HP PRN #30 tablet PRN Reason: Docusate Sodium [Colace 100 mg Capsule] 100 mg PO BID #60 capsule Ferrous Sulfate [Feosol 325 mg Tablet] 325 mg PO BID #60 tablet Home Medications: Levetiracetam [Keppra] 500 mg PO DAILY 11/14/17 Phenyleph/Mineral Oil/Petrolat [Preparation H Ointment] 1 11/14/17 Pnv 102/Iron/Folate 1/Dss/Dha [Vitafol Fe+ Docusate Combo Pck] 1 tab PO DAILY [id number]/Iron/Lmfolate/Algal [Vinate Dha Rf Gelcap] 1 each PO DAILY 11/19/17 Docusate Sodium [Colace 100 mg Capsule] 100 mg PO BID #60 capsule 11/21/17 Ferrous Sulfate [Feosol 325 mg Tablet] 325 mg PO BID #60 tablet 11/21/17 Ibuprofen [Motrin 800 mg Tablet] 800 mg PO Q8HP PRN #30 tablet 11/21/17 Reason(s) for Admission: PROM Procedures: NST, Ultrasound Intrapartum Procedure(s): Spontaneous Vaginal Delivery Complication(s): Laceration-Labial - Diagnosis Test Laboratory: Temp Pulse Resp BP Pulse Ox 97.9 F 68 19 122/65 100 11/21/17 08:27 11/21/17 08:27 11/21/17 08:27 11/21/17 08:27 11/21/17 08:27 11/19/17 11/20/17 13:56 07:07 RBC 4.25 Hgb 9.3 L Hct 29.7 L Urine Opiates Screen NEGATIVE - Discharge information/Instructions Discharge Activity: Activity As Tolerated, Balance Activity w/Rest, No Lifting Over 10 Pounds, Pelvic Rest, Slowly Increase Activity, No tub bath, Walk Frequently Discharge Diet: As Tolerated Disposition: HOME, SELF-CARE Follow up with: [facility] in: 4, Weeks - also needs to follow with neurologist as scheduled.
== END 2017-11-21 15:42 | disposition home or self-care (01) | DRG 775 ==
LOC: LC 13:43 → LR 15:14 → 2S 23:36
PROVIDERS: ADMIT Obstetrics & Gynecology Gynecology; ATTEND Obstetrics & Gynecology Gynecology
PROC: 10E0XZZ Delivery of Products of Conception, External Approach (ICD-10-PCS; principal; 2017-11-19)
PROC: 0HQ9XZZ Repair Perineum Skin, External Approach (ICD-10-PCS; 2017-11-19)
PROC: 3E0234Z Introduction of Serum, Toxoid and Vaccine into Muscle, Percutaneous Approach (ICD-10-PCS; 2017-11-21)
DX: O48.0 Post-term pregnancy (principal); O99.354 Diseases of the nervous system complicating childbirth; G40.909 Epilepsy, unspecified, not intractable, without status epilepticus; O70.0 First degree perineal laceration during delivery; Z3A.40 40 weeks gestation of pregnancy; Z37.0 Single live birth; Z23 Encounter for immunization
CPT/HCPCS: 36415; 80307; 81005; 85027; 86850; 86900; 86901; 90715; J2300; J2405; J2550; J2590; J3490

== ENCOUNTER 2018-01-03 09:15 | Emergency (ER) | payer MEDICAID ==
[2018-01-03 09:20] VITALS: BP 122/67
--- NOTE | 2018-01-03 09:45 | ER Document Report ---
ED General - General Chief Complaint: Vaginal Bleeding Stated Complaint: VAGINAL BLEEDING Time Seen by Provider: 01/03/18 09:23 Mode of Arrival: Ambulatory Information source: Patient Notes: 22 yr old female presents after her vaginal delivery 2 months ago with complaints of her first menses. Pt notes it was pink spotting, then heavy bleeding noted. . Pt called her obgyn office and they told her to come here instead. pt is asymptomatic otherwise TRAVEL OUTSIDE OF THE [place] IN LAST 30 DAYS: No - HPI Onset: Last week Onset/Duration: Persistent Quality of pain: No pain Severity: Mild Pain Level: Denies Associated symptoms: None Exacerbated by: Denies Relieved by: Denies Similar symptoms previously: Yes Recently seen / treated by doctor: Yes - Related Data Allergies/Adverse Reactions: No Known Allergies Allergy (Verified 01/03/18 09:17) Past Medical History - Social History Smoking Status: Never Smoker Cigarette use (# per day): No Chew tobacco use (# tins/day): No Smoking Education Provided: No Family History: Reviewed & Not Pertinent Neurological Medical History: Reports: Hx Seizures Renal/ Medical History: Denies: Hx Peritoneal Dialysis - Immunizations Immunizations up to date: Yes Hx Diphtheria, Pertussis, Tetanus Vaccination: Yes Review of Systems - Review of Systems Notes: REVIEW OF SYSTEMS: CONSTITUTIONAL : Denies fever, chills, or sweats. Denies recent illness. EENT: Denies eye, ear, throat, or mouth pain or symptoms. Denies nasal or sinus congestion or discharge. Denies throat, tongue, or mouth swelling or difficulty swallowing. CARDIOVASCULAR: Denies chest pain. Denies palpitations or racing or irregular heart beat. Denies ankle edema. RESPIRATORY: Denies cough, cold, or chest congestion. Denies shortness of breath, difficulty breathing, or wheezing. GASTROINTESTINAL: Denies abdominal pain or distention. Denies nausea, vomiting , or diarrhea. Denies blood in vomitus, stools, or per rectum. Denies black, tarry stools. Denies constipation. GENITOURINARY: Denies difficulty urinating, painful urination, burning, frequency, blood in urine, or discharge. FEMALE GENITOURINARY: admits ot intermittent vaginal bleeding MUSCULOSKELETAL: Denies back or neck pain or stiffness. Denies joint pain or swelling. SKIN: Denies rash, lesions or sores. HEMATOLOGIC : Denies easy bruising or bleeding. LYMPHATIC: Denies swollen, enlarged glands. NEUROLOGICAL: Denies confusion or altered mental status. Denies passing out or loss of consciousness. Denies dizziness or lightheadedness. Denies headache. Denies weakness or paralysis or loss of use of either side. Denies problems with gait or speech. Denies sensory loss, numbness, or tingling. Denies seizures. PSYCHIATRIC: Denies anxiety or stress. Denies depression, suicidal ideation, or homicidal ideation. ALL OTHER SYSTEMS REVIEWED AND NEGATIVE. PHYSICAL EXAMINATION: GENERAL: Well-appearing, well-nourished and in no acute distress. HEAD: Atraumatic, normocephalic. EYES: Pupils equal round and reactive to light, extraocular movements intact, conjunctiva are normal. ENT: Nares patent, oropharynx clear without exudates. Moist mucous membranes. NECK: Normal range of motion, supple without lymphadenopathy LUNGS: Breath sounds clear to auscultation bilaterally and equal. No wheezes rales or rhonchi. HEART: Regular rate and rhythm without murmurs ABDOMEN: Soft, nontender, nondistended abdomen. No guarding, no rebound. No masses appreciated. Female : deferred Musculoskeletal: Normal range of motion, no pitting or edema. No cyanosis. NEUROLOGICAL: Cranial nerves grossly intact. Normal speech, normal gait. Normal sensory, motor exams PSYCH: Normal mood, normal affect. SKIN: Warm, Dry, normal turgor, no rashes or lesions noted. Dictation was performed using [employer] voice recognition software Physical Exam - Vital signs Vitals: Temp Pulse Resp BP Pulse Ox 98.2 F 74 16 122/67 98 01/03/18 09:19 01/03/18 09:19 01/03/18 09:19 01/03/18 09:19 01/03/18 09:19 Course - Re-evaluation Re-evalutation: 01/03/18 09:44 Lab work is pending to rule out any signs of anemia or other abnormalities, she looks well is asymptomatic she is in no distress, her abdominal examination was completely benign, this is probably due to her first menses post delivery 01/03/18 10:40 Patient blood work notes no significant acute abnormality, her hemoglobin appears stable, she has not had any bleeding while here, she requests to be discharged so she can go to class, patient's presentation is most consistent with irregular bleeding her urinalysis does note 182+ white blood cells I will treat her as a UTI and urine cultures pending patient has been given instructions to follow-up with TECHNICAL SERVICES LIBRARIAN for further evaluation care or to return immediately if there are any other concerns After performing a Medical Screening Examination, I estimate there is LOW risk for ACUTE APPENDICITIS, BOWEL OBSTRUCTION, ACUTE CHOLECYSTITIS, PERFORATED DIVERTICULITIS, INCARCERATED HERNIA, PANCREATITIS, PELVIC INFLAMMATORY DISEASE, PERFORATED ULCER, ECTOPIC , or TUBO-OVARIAN ABSCESS, thus I consider the discharge disposition reasonable. Also, there is no evidence or peritonitis , sepsis, or toxicity. I have reevaluated this patient multiple times and no significant life threatening changes are noted. The patient and I have discussed the diagnosis and risks, and we agree with discharging home with close follow-up with the understanding that symptoms and presentations can change. We also discussed returning to the Emergency Department immediately if new or worsening symptoms occur. We have discussed the symptoms which are most concerning (e.g., bloody stool, fever, changing or worsening pain, vomiting) that necessitate immediate return. - Vital Signs Vital signs: Temp Pulse Resp BP Pulse Ox 98.2 F 74 16 122/67 98 01/03/18 09:19 01/03/18 09:19 01/03/18 09:19 01/03/18 09:19 01/03/18 09:19 - Laboratory Result Diagrams: 01/03/18 09:42 01/03/18 09:42 Laboratory results interpreted by me: 01/03/18 01/03/18 09:42 09:42 RBC 5.40 H Hgb 11.7 L MCV 69 L MCH 21.6 L MCHC 31.5 L RDW 15.1 H Urine Protein 100 H Urine Blood LARGE H Ur Leukocyte Esterase TRACE H Discharge - Discharge Clinical Impression: Vaginal bleeding UTI (urinary tract infection) Qualifiers: Urinary tract infection type: acute cystitis Hematuria presence: with hematuria Qualified Code(s): N30.01 - Acute cystitis with hematuria Condition: Stable Disposition: HOME, SELF-CARE Instructions: Urinary Tract Infection ([facility]) Additional Instructions: Follow up with your physician tomorrow for further care or return to the ED IMMEDIATELY if symptoms worsen or new concerns occur. If you cannot afford to follow up with your primary care physician a list of low cost clinics have been provided at the end of your discharge papers as well. Prescriptions: Cephalexin Monohydrate [Keflex 500 mg Capsule] 500 mg PO BID 5 Days capsule
[2018-01-03 09:57] LABS: ABSOLUTE EOSINOPHILS # (AUTO) 0.2 10^3/uL (0.0-0.6); ABSOLUTE LYMPHOCYTES (AUTO) 1.8 10^3/uL (0.5-4.7); ABSOLUTE MONOCYTES (AUTO) 0.6 10^3/uL (0.1-1.4); ABSOLUTE NEUT (AUTO) 2.1 10^3/uL (1.7-8.2); EOSINOPHILS % (AUTO) 4.1 % (0-6); HEMATOCRIT 37.1 % (36.0-47.0); HEMOGLOBIN 11.7 g/dL (12.0-15.5); LYMPHOCYTES % (AUTO) 37.8 % (13-45); MEAN CORPUSCULAR HEMOGLOBIN 21.6 pg (27.0-33.4); MEAN CORPUSCULAR HGB CONC 31.5 g/dL (32.0-36.0); MEAN CORPUSCULAR VOLUME 69 fl (80-97); MONOCYTES % (AUTO) 11.7 % (3-13); PLATELET COUNT 247 10^3/uL (150-450); RED CELL DISTRIBUTION WIDTH 15.1 % (11.5-14.0); SEGMENTED NEUTROPHILS % (AUTO) 45.4 % (42-78); TOTAL CELLS COUNTED % (AUTO) 100 %; WHITE BLOOD COUNT 4.7 10^3/uL (4.0-10.5)
[2018-01-03 10:05] LABS: APPEARANCE,URINE CLOUDY; BILIRUBIN,URINE NEGATIVE (NEGATIVE); COLOR,URINE RED; GLUCOSE, URINE NEGATIVE (NEGATIVE); KETONES,URINE NEGATIVE (NEGATIVE); LEUKOCYTE ESTERASE,URINE TRACE (NEGATIVE); NITRITE,URINE NEGATIVE (NEGATIVE); PROTEIN,URINE 100 mg/dL (NEGATIVE); UROBILINOGEN,URINE NEGATIVE mg/dL (<2.0)
[2018-01-03 10:19] LABS: ALANINE AMINOTRANSFERASE 21 U/L (9-52); ALBUMIN 4.3 g/dL (3.5-5.0); ALKALINE PHOSPHATASE 66 U/L (38-126); ANION GAP 9 (5-19); ASPARTATE AMINO TRANSFERASE 16 U/L (14-36); BILIRUBIN,DIRECT 0.3 mg/dL (0.0-0.4); BILIRUBIN,TOTAL 0.4 mg/dL (0.2-1.3); BLOOD UREA NITROGEN 11 mg/dL (7-20); CALCIUM 9.6 mg/dL (8.4-10.2); CARBON DIOXIDE 27 mmol/L (22-30); CHLORIDE 104 mmol/L (98-107); GLUCOSE 87 mg/dL (75-110); POTASSIUM 4.2 mmol/L (3.6-5.0); SODIUM 140.3 mmol/L (137-145); TOTAL PROTEIN 7.3 g/dL (6.3-8.2)
== END 2018-01-03 10:54 | disposition home or self-care (01) ==
LOC: ER 09:15
DX: N30.01 Acute cystitis with hematuria (principal); N93.8 Other specified abnormal uterine and vaginal bleeding
CPT/HCPCS: 36415; 80053; 81001; 84702; 85025; 87086; 99284

== ENCOUNTER 2018-04-05 09:32 | Day surgery (SDC) | payer MEDICAID ==
[2018-03-29 11:01] LABS: HEMATOCRIT 36.9 % (36.0-47.0); HEMOGLOBIN 11.5 g/dL (12.0-15.5); MEAN CORPUSCULAR HGB CONC 31.1 g/dL (32.0-36.0); MEAN CORPUSCULAR VOLUME 68 fl (80-97); PLATELET COUNT 275 10^3/uL (150-450); RED BLOOD COUNT 5.46 10^6/uL (3.72-5.28); RED CELL DISTRIBUTION WIDTH 15.1 % (11.5-14.0)
[~2018-04-05 09:32] MED LIST: ACETAMINOPHEN 325 MG TABLET PO PRN; CEFAZOLIN SODIUM 2 GM in DEXTROSE 5%-WATER 100 ML IV PRN; GLYCOPYRROLATE INJ 0.4 MG/2 ML VIAL ONE; LACTATED RINGERS 1000 ML IV PRN; LIDOCAINE 0.5% INJ-PF (5 MG/ML) 50 ML SDV SUBCUT PRN; LIDOCAINE 2% INJ-PF (20 MG/ML) 2 ML AMPUL ONE; NEOSTIGMINE METHYLSULFATE 10 MG/10 ML VIAL ONE; ROCURONIUM BROMIDE INJ 50 MG/5 ML VIAL IV ONE; SUCCINYLCHOLINE CHLORIDE INJ 200 MG/10 ML VIAL ONE
[2018-04-05] MEDS ORDERED: BUPIVACAINE HCL 0.25% /EPINEPHRINE INJ/PF 30 ML SDV ONE (10:56)
[2018-04-05] MEDS ORDERED: MIDAZOLAM 2 MG/2 ML INJ ONE (11:19)
[2018-04-05] MEDS ORDERED: ACETAMINOPHEN 100 ML IV ONE (11:20)
[2018-04-05] MEDS ORDERED: PROPOFOL INJ 200 MG/20 ML VIAL IV ONE (11:20)
[2018-04-05] MEDS ORDERED: FENTANYL CITRATE INJ/PF 250 MCG/5 ML AMPULE ONE (11:20)
[2018-04-05] MEDS ORDERED: FENTANYL CITRATE INJ/PF 100 MCG/2 ML AMPUL IV PRN ×3 (12:29)
[2018-04-05] MEDS ORDERED: MEPERIDINE HCL/PF INJ 25 MG/1 ML DISP.SYRIN IV PRN (12:29)
[2018-04-05] MEDS ORDERED: OXYCODONE-ACETAMINOPHEN 5-325 MG TABLET PO PRN ×2 (12:29)
[2018-04-05] MEDS ORDERED: DIPHENHYDRAMINE HCL 50 MG/ML VIAL IV PRN (12:29)
[2018-04-05] MEDS ORDERED: PROMETHAZINE HCL INJ 25 MG/1 ML VIAL IV PRN ×2 (12:29)
[2018-04-05] MEDS ORDERED: FENTANYL CITRATE INJ/PF 100 MCG/2 ML AMPUL ONE (13:54)
[2018-04-05] MEDS: LORAZEPAM INJ 2 MG/1 ML VIAL ONE ×2 (14:07→14:17)
[2018-04-05] MEDS ORDERED: ONDANSETRON HCL INJ/PF 4 MG/2 ML SDV ONE (15:27)
[2018-04-05] MEDS ORDERED: DEXAMETHASONE SOD PHOSPHATE INJ 4 MG/1 ML VIAL ONE (15:27)
[2018-04-05] MEDS ORDERED: HYDROCODONE/ACETAMINOPHEN 10-325 MG TABLET ONE (17:02)
[2018-04-05 18:46] VITALS: BP 118/64
--- NOTE | 2018-04-09 07:03 | Discharge Summary ---
Discharge Summary (SDC) - Discharge Final Diagnosis: umbilical hernia Date of Surgery: 04/05/18 Discharge Date: 04/05/18 Condition: Stable Forms: ASU Anesthesia D/C Instruction, Discharge POC-Surgical Service Referrals: LANA CROSS MD [ACTIVE STAFF] - Respiratory Treatments at Home: Deep Breathing/Coughing Discharge Activity: Activity As Tolerated, No Driving, No Lifting Over 10 Pounds , No Lifting/Push/Pulling, Slowly Increase Activity, No tub bath Home Care Assistance: Provided by Family Report the Following to Your Physician Immediately: Shortness of Breath, Nausea , Vomiting, Increase in Pain, Fever over 101 Degrees, Unusual Bleeding, Redness , Swelling, Warmth, Increased Soreness, Drainage-Yellow, Drainage-Garcia, Drainage -Green, Drainage-Foul Smelling, Wheezing, IV Site Infection Signs, Urinary Infection Signs
--- NOTE | 2018-04-09 09:21 | Operative Report ---
Nonrecallable Operative Report DATE OF SURGERY: 04/05/18 PREOPERATIVE DIAGNOSIS: Umbilical hernia. POSTOPERATIVE DIAGNOSIS: Same as above. OPERATION: Robot-assisted laparoscopic umbilical hernia repair. No mesh implanted. SURGEON: LANA CROSS ANESTHESIA: GA TISSUE REMOVED OR ALTERED: None COMPLICATIONS: None apparent ESTIMATED BLOOD LOSS: Minimal PROCEDURE: Drains/implants: None. Procedure in detail: After informed consent was obtained, the patient was laid in the supine position in the operating room. The area of the abdomen was prepped and draped in a normal sterile fashion. The abdomen was then accessed using a 5 mm camera, 5 mm trocar, and the Optiview technique. This was performed in the left upper quadrant. After the trocar was inserted into the abdominal cavity, gas insufflation was attached and pneumoperitoneum was achieved. A 12 mm left lateral abdominal wall trocar was placed under direct laparoscopic visualization. A left lower quadrant 8 mm trocar was placed under direct laparoscopic visualization. The left upper quadrant 5 mm trocar was then replaced with an 8 mm trocar. The robot was brought over the patient and docked appropriately. Defect was easily visualized. There was preperitoneal fat within the defect. This was reduced from the defect. Next, 0 permanent V lock suture was used to close the defect and plicate the patient's diastases recti. This was done with 2 separate sutures. The first suture was started superiorly and run inferiorly. The second suture was started inferiorly and run superiorly. The defect and diastases were then closed. No mesh was left within the abdomen due to the patient's desire for future pregnancies. Once the defect was closed, attention was turned to closure of the trocar sites. The robot was undocked and moved away from the patient. The 8 mm trocar sites were closed using 0 Vicryl suture in simple interrupted fashion with the assistance of the Endo Close device. The 12 mm trocar was removed. The 12 mm trocar site was closed using 0 Vicryl suture in [id number] fashion under direct vision. Once this was completed, dressings were created. All sponge, instrument, and needle counts were correct 2. Condition: Stable.
== END 2018-04-05 18:20 | disposition home or self-care (01) ==
LOC: OROUT 09:32
PROVIDERS: ATTEND Surgery
DX: K42.9 Umbilical hernia without obstruction or gangrene (principal); G40.909 Epilepsy, unspecified, not intractable, without status epilepticus; Z79.899 Other long term (current) drug therapy
CPT/HCPCS: 49652; S2900; 36415; 750; 81025; 85027; J0131; J0330; J0690; J1100; J2060; J2250; J2405; J2704; J3010; J3490

== ENCOUNTER 2018-04-27 13:10 | Emergency (ER) | payer OTHER, MEDICAID ==
[2018-04-27 13:16] VITALS: BP 123/62
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
[2018-04-27] MEDS ORDERED: HYDROCODONE/ACETAMINOPHEN 5-325 MG TABLET PO ONE (14:28)
[2018-04-27] MEDS ORDERED: IBUPROFEN 400 MG TABLET PO ONE (14:28)
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
== END 2018-04-27 15:38 | disposition home or self-care (01) ==
LOC: ER 13:10
DX: S39.91XA Unspecified injury of abdomen, initial encounter (principal); M79.672 Pain in left foot; V49.50XA Passenger injured in collision with unspecified motor vehicles in traffic accident, initial encounter; Z98.890 Other specified postprocedural states
CPT/HCPCS: 99283; 73620; J3490

== ENCOUNTER 2018-05-05 11:20 | Emergency (ER) | payer MEDICAID, OTHER ==
[2018-05-05] MEDS ORDERED: IBUPROFEN 800 MG TABLET PO ONE (12:02)
--- NOTE | 2018-05-05 12:03 | ER Document Report ---
ED Hand/Wrist Injury - General Chief Complaint: Wrist Pain Stated Complaint: LEFT WRIST PAIN Time Seen by Provider: 05/05/18 11:55 Mode of Arrival: Ambulatory Information source: Patient Notes: 23-year-old female presented ED for complaint of pain in her left wrist. She states it is been painful for about a month every time she moves it. She states it feels like it is popping all the time. States when she tries to lift her some the pain is much worse up to a level 5 out of 5. She states when she is not moving and sometimes it does not hurt at all. She is alert and oriented respirations regular and unlabored speaking in full sentences walks with a even steady gait. TRAVEL OUTSIDE OF THE [place] IN LAST 30 DAYS: No - HPI Injury to: Wrist Onset: Other - Within a month Timing: Waxing and waning Quality of pain: Sharp, Throbbing Severity: Severe Pain Level: 5 Context: Other - No injuries dates the pain is worse when she lifts something or moves her wrist - Related Data Allergies/Adverse Reactions: No Known Allergies Allergy (Verified 04/27/18 13:10) Past Medical History - General Information source: Patient - Social History Smoking Status: Never Smoker Cigarette use (# per day): No Chew tobacco use (# tins/day): No Smoking Education Provided: No Frequency of alcohol use: Occasional Drug Abuse: None Occupation: Sales Lives with: Parents Family History: Reviewed & Not Pertinent Patient has suicidal ideation: No Patient has homicidal ideation: No - Past Medical History Cardiac Medical History: Reports: None Pulmonary Medical History: Reports: None Neurological Medical History: Reports: Hx Seizures - UNSURE OF LAST EPISODE Endocrine Medical History: Reports: None Renal/ Medical History: Reports: None Malignancy Medical History: Reports: None GI Medical History: Reports: None Musculoskeltal Medical History: Reports Hx Musculoskeletal Deformity Skin Medical History: Reports None Psychiatric Medical History: Reports: None Traumatic Medical History: Reports: None Infectious Medical History: Reports: None Past Surgical History: Reports: Hx Umbilical Hernia - Immunizations Immunizations up to date: Yes Hx Diphtheria, Pertussis, Tetanus Vaccination: Yes Review of Systems - Review of Systems Musculoskeletal: Joint pain - Left wrist pain and feels like his popping Physical Exam - Vital signs Vitals: Temp Pulse Resp BP Pulse Ox 99.0 F 86 16 126/61 H 98 05/05/18 11:24 05/05/18 11:24 05/05/18 11:24 05/05/18 11:24 05/05/18 11:24 - Extremities General upper extremity: Normal inspection Wrist: Tender, Limited ROM - Pain with range of motion. No: Abrasion, Axial load of thumb pain, Deformity, Dislocation, Ecchymosis, Instability, Laceration , Navicular tenderness Course - Re-evaluation Re-evalutation: 05/05/18 21:38 X-ray discussed with patient and written report given to patient to follow-up with orthopedics. Patient was instructed to elevate ice and use the splint for her wrist pain. Patient verbalized understanding and agreement with treatment plan. - Vital Signs Vital signs: Temp Pulse Resp BP Pulse Ox 99.0 F 88 18 124/66 98 05/05/18 11:24 05/05/18 13:32 05/05/18 13:32 05/05/18 13:32 05/05/18 13:32 - Diagnostic Test Radiology reviewed: Image reviewed, Reports reviewed Procedures - Immobilization Left Wrist Time completed: 13:30 Immobilizer type: Cock-up Performed by: PCT Post-Proc Neuro Vasc Exam: Normal Alignment checked and good: Yes Discharge - Discharge Clinical Impression: Chronic pain of left wrist Condition: Stable Disposition: HOME, SELF-CARE Additional Instructions: You were seen today for pain in your left wrist that keeps "popping". Is no new injuries to this wrist . The x-rays does show some deformity and some of the wrist bones. Put a splint on your wrist that will help to decrease the movement in your wrist joint until you can follow-up with orthopedics. You will need to follow-up with orthopedics on Sunday by telephone and schedule a follow-up appointment for them to determine the treatment you needed to correct the problem in your wrist. SPLINT PRECAUTIONS: A splint has been placed. This will protect the area while healing begins. Your problem does NOT normally require a cast. It MUST, however, be held still! Keep the splint on ALL THE TIME until instructed to remove it by the doctor. As you begin to use the area, be careful. You shouldn't do anything which causes discomfort -- you may disturb the injury even with the splint in place. After the initial period of rest and elevation, if splint does not prevent pain when you move, come back. You may require placement of a different splint , or a cast. If there is unexpected severe pain, or numbness, discoloration, or swelling beyond the splint, you should return at once. If you feel that the splint has broken or become loose, come back. ICE & ELEVATION: Apply ice packs frequently against the painful area. Many different schedules are recommended, such as "20 minutes on, 20 minutes off" or "one hour ice, two hours rest." If you need to work, you may need to go longer between ice treatments. You should plan to have the area ice packed AT LEAST one- fourth of the time. The ice should be applied over the wrap, tape, or splint, or over a layer of cloth -- not directly against the skin. Some ice bags have a built-in cloth and can be put directly on the skin. Your injured part should be elevated as much as possible over the next 48 hours. Try to keep the injury above the level of the heart. Avoid use of the injured area. Elevation and rest will decrease the swelling. USE OF AABY-UPN-[id number] IBUPROFEN: Ibuprofen (Advil, Nuprin, Medipren, Motrin IB) is a medication for fever and pain control. In addition, it has anti- inflammatory effects which may be beneficial, especially in the treatment of injuries. It's best to take ibuprofen with food. Persons with ulcer disease or allergy to aspirin should notify their physician of this before taking ibuprofen. Ibuprofen can be given every four to six hours, for a total of four doses daily. Age Pain or fever dose Antiinflammatory dose 6-8 yr 200 mg (1 tab) 200 mg (1 tab) 9-11 yr 200 mg (1 tab) 200-400 mg (1-2 tab) 11-14 yr 200-400 mg (1-2 tab) 400 mg (2 tab) 15-adult 400 mg (2 tab) 600 mg (3 tab) FOLLOW-UP CARE: If you have been referred to a physician for follow-up care, call the physician s office for an appointment as you were instructed or within the next two days. If you experience worsening or a significant change in your symptoms, notify the physician immediately or return to the Emergency Department at any time for re-evaluation. Forms: Elevated Blood Pressure, Return to Work Referrals: CESAR SERNA DO [Primary Care Provider] - Follow up as needed GA FAIRBANKS MD [ACTIVE STAFF] - Follow up as needed
--- NOTE | 2018-05-05 12:35 | RADIOLOGY REPORT (SQ) ---
EXAM DESCRIPTION: WRIST LEFT 3 VIEWS COMPLETED DATE/TIME: 05/05/2018 12:15 pm REASON FOR STUDY: pain with movement "popping" COMPARISON: None. NUMBER OF VIEWS: Three views. TECHNIQUE: AP, lateral, and oblique radiographic images acquired of the left wrist. LIMITATIONS: None. FINDINGS: MINERALIZATION: Normal. BONES: No acute fracture or dislocation. No worrisome bone lesions. Normal alignment. There is bony f usion of the lunate and triquetrum. JOINTS: No erosions. No marilee-articular osteopenia. No chondrocalcinosis. SOFT TISSUES: No swelling. No calcifications. OTHER: No other significant finding. IMPRESSION: CARPAL COALITION WITH BONY FUSION OF THE LUNATE AND TRIQUETRUM. NO ACUTE FINDINGS. TECHNICAL DOCUMENTATION: JOB ID: [id number] [email or web address]- All Rights Reserved Reading location - IP/workstation name: [email or web address]
[2018-05-05 13:33] VITALS: BP 124/66
== END 2018-05-05 13:32 | disposition home or self-care (01) ==
LOC: ER 11:20
DX: M25.532 Pain in left wrist (principal); G89.29 Other chronic pain
CPT/HCPCS: 99283; 73110; L3908; J3490

== ENCOUNTER → 2018-08-10 | Outpatient (CLI) | payer MEDICAID ==
[2018-08-10 11:43] LABS: BACTERIA (WET MOUNT) 4+ BACTERIA SEEN; EPITHELIALS (WET MOUNT) 3+ EPITHELIALS SEEN; RBCS (WET MOUNT) NO RBCS SEEN; T.VAGINALIS (WET MOUNT) NO TRICHOMONAS SEEN; WBCS (WET MOUNT) FEW WBCS SEEN; YEAST (WET MOUNT) NO YEAST SEEN
[2018-08-10 13:11] LABS: CHLAM PCR NOT DETECTED (NOT DETECT); GON PCR NOT DETECTED (NOT DETECT)
== END ==
LOC: LAB 11:30
PROVIDERS: ATTEND Nurse Practitioner Family
DX: N89.8 Other specified noninflammatory disorders of vagina (principal); R30.0 Dysuria
CPT/HCPCS: 87086; 87210; 87491; 87591

== ENCOUNTER 2018-10-15 09:05 | Emergency (ER) | payer MEDICAID ==
[2018-10-15 09:20] VITALS: BP 134/73
[2018-10-15] MEDS ORDERED: ACETAMINOPHEN 325 MG TABLET PO ONE (09:55)
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
== END 2018-10-15 10:12 | disposition home or self-care (01) ==
LOC: ER 09:05
DX: T23.111A Burn of first degree of right thumb (nail), initial encounter (principal); X19.XXXA Contact with other heat and hot substances, initial encounter; Y93.89 Activity, other specified
CPT/HCPCS: 99283; J3490

== ENCOUNTER → 2018-11-13 | Outpatient (CLI) | payer MEDICAID ==
--- NOTE | 2018-11-13 10:45 | RADIOLOGY REPORT (SQ) ---
EXAM DESCRIPTION: CT ABD/PELVIS WITH IV ORAL COMPLETED DATE/TIME: 11/13/2018 10:18 am REASON FOR STUDY: POST OP PROBLEM VERTRAL HERNIA Z09 ENCNTR FOR F/U EXAM AFT TRTMT FOR COND OTH JASON N MALPEDRO NE COMPARISON: None. TECHNIQUE: CT scan of the abdomen and pelvis performed with intravenous and oral contrast using marilia ben scanning technique with dynamic intravenous contrast injection. Images reviewed with lung, soft t issue, and bone windows. Reconstructed coronal and sagittal MPR images reviewed. Delayed images for e valuation of the urinary system also acquired. All images stored on PACS. All CT scanners at this facility use dose modulation, iterative reconstruction, and/or weight based d osing when appropriate to reduce radiation dose to as low as reasonably achievable (ALARA). [facility]: Dose Right [facility]: CareDose [facility]: Dose Right [facility]: Teradose 4D [facility]: [employer] CONTRAST TYPE AND DOSE: contrast/concentration: Isovue 350.00 mg/ml; Total Contrast Delivered: 100.0 ml; Total Saline Delivered: 72.0 ml RENAL FUNCTION: None required. The patient is less than 50 years old. RADIATION DOSE: CT Rad equipment meets quality standard of care and radiation dose reduction techniq ues were employed. CTDIvol: 10.0 - 11.5 mGy. DLP: 1042 mGy-cm.. LIMITATIONS: None. FINDINGS: LOWER CHEST: No significant findings. No nodules or infiltrates. LIVER: Normal size. No masses. No dilated ducts. SPLEEN: Normal size. No focal lesions. PANCREAS: No masses. No significant calcifications. No adjacent inflammation or peripancreatic fluid collections. Pancreatic duct not dilated. GALLBLADDER: No identified stones by CT criteria. No inflammatory changes to suggest cholecystitis. ADRENAL GLANDS: No significant masses or asymmetry. RIGHT KIDNEY AND URETER: No solid masses. No significant calcification. No hydronephrosis or hydroure ter. LEFT KIDNEY AND URETER: No solid masses. No significant calcification. No hydronephrosis or hydrouret er. AORTA AND VESSELS: No aneurysm. No dissection. Renal arteries, SMA, celiac without stenosis. RETROPERITONEUM: No retroperitoneal adenopathy, hemorrhage or masses. BOWEL AND PERITONEAL CAVITY: No obstruction. No visualized masses. No free fluid. No inflammatory ch anges or thickening of bowel wall. APPENDIX: Normal. PELVIS: No significant masses. Normal bladder. No free fluid. ABDOMINAL WALL: No recurrent hernia. No abdominal wall mass or fluid. BONES: No significant or acute findings. OTHER: No other significant finding. IMPRESSION: NO SIGNIFICANT OR ACUTE FINDINGS IN THE ABDOMEN OR PELVIS. TECHNICAL DOCUMENTATION: JOB ID: [id number] Quality ID # [id number]: Final reports with documentation of one or more dose reduction techniques (e.g., Au tomated exposure control, adjustment of the mA and/or kV according to patient size, use of iterative reconstruction technique) 2010 [employer] All Rights Reserved Reading location - IP/workstation name: [email or web address]
== END ==
LOC: RAD 09:56
PROVIDERS: ATTEND Physician Assistant Surgical
DX: Z09 Encounter for follow-up examination after completed treatment for conditions other than malignant neoplasm (principal); K43.9 Ventral hernia without obstruction or gangrene
CPT/HCPCS: 74177

== ENCOUNTER 2019-02-17 11:46 | Emergency (ER) | payer MEDICAID ==
--- NOTE | 2019-02-17 12:14 | ER Document Report ---
ED Medical Screen (RME) - General Chief Complaint: Seizure Stated Complaint: POSSIBLE SEZIURES Time Seen by Provider: 02/17/19 12:04 Primary Care Provider: ORIN CARPENTER PA-C [Primary Care Provider] - Follow up as needed Mode of Arrival: Ambulatory Information source: Patient, Relative Notes: Patient is a 23-year-old female with history of epilepsy who presents after having multiple seizures over the last few days. Patient reports she is having 8-9 seizures daily. Patient states she is to take Vimpat and Keppra however over the last few weeks her neurologist has transitioned her on to a new medication called Apilom. Patient reports she believes this is what has caused increased seizure activity. Patient reports seizures only occur at night while she is asleep. Exam: Patient answering all questions appropriately but appears to be mildly sluggish. I have greeted and performed a rapid initial assessment of this patient. A comprehensive ED assessment and evaluation of the patient, analysis of test results and completion of the medical decision making process will be conducted by additional ED providers. Dictation of this chart was performed using voice recognition software; therefore, there may be some unintended grammatical errors. TRAVEL OUTSIDE OF THE [place] IN LAST 30 DAYS: No - Related Data Allergies/Adverse Reactions: No Known Allergies Allergy (Verified 02/17/19 11:53) Past Medical History - Social History Chew tobacco use (# tins/day): No Frequency of alcohol use: None Drug Abuse: None Family history: Reviewed & Not Pertinent Neurological Medical History: Reports: Hx Seizures Renal/ Medical History: Denies: Hx Peritoneal Dialysis Musculoskeltal Medical History: Reports Hx Musculoskeletal Deformity Past Surgical History: Reports: Hx Umbilical Hernia - Immunizations Immunizations up to date: Yes Hx Diphtheria, Pertussis, Tetanus Vaccination: Yes History of Influenza Vaccine for 08/2017 - 01/2018 Season: No Physical Exam - Vital signs Vitals: Temp Pulse Resp BP Pulse Ox 98.2 F 80 16 122/69 98 02/17/19 12:01 02/17/19 12:01 02/17/19 12:01 02/17/19 12:01 02/17/19 12:01 Course - Vital Signs Vital signs: Temp Pulse Resp BP Pulse Ox 98.2 F 80 16 122/69 98 02/17/19 12:01 02/17/19 12:01 02/17/19 12:01 02/17/19 12:01 02/17/19 12:01 Doctor's Discharge - Discharge Referrals: ORIN CARPENTER PA-C [Primary Care Provider] - Follow up as needed
[2019-02-17 12:48] LABS: ABSOLUTE EOSINOPHILS # (AUTO) 0.1 10^3/uL (0.0-0.6); ABSOLUTE LYMPHOCYTES (AUTO) 1.9 10^3/uL (0.5-4.7); ABSOLUTE MONOCYTES (AUTO) 0.5 10^3/uL (0.1-1.4); ABSOLUTE NEUT (AUTO) 3.6 10^3/uL (1.7-8.2); BASOPHILS % (AUTO) 0.6 % (0-2); EOSINOPHILS % (AUTO) 1.3 % (0-6); HEMATOCRIT 38.6 % (36.0-47.0); HEMOGLOBIN 12.3 g/dL (12.0-15.5); LYMPHOCYTES % (AUTO) 31.3 % (13-45); MEAN CORPUSCULAR HEMOGLOBIN 21.3 pg (27.0-33.4); MEAN CORPUSCULAR HGB CONC 31.8 g/dL (32.0-36.0); MEAN CORPUSCULAR VOLUME 67 fl (80-97); MONOCYTES % (AUTO) 7.8 % (3-13); PLATELET COUNT 263 10^3/uL (150-450); RED BLOOD COUNT 5.78 10^6/uL (3.72-5.28); RED CELL DISTRIBUTION WIDTH 16.3 % (11.5-14.0); TOTAL CELLS COUNTED % (AUTO) 100 %; WHITE BLOOD COUNT 6.1 10^3/uL (4.0-10.5)
[2019-02-17 12:56] LABS: APPEARANCE,URINE CLEAR; BILIRUBIN,URINE NEGATIVE (NEGATIVE); COLOR,URINE YELLOW; GLUCOSE, URINE NEGATIVE (NEGATIVE); KETONES,URINE 20 mg/dL (NEGATIVE); LEUKOCYTE ESTERASE,URINE NEGATIVE (NEGATIVE); NITRITE,URINE NEGATIVE (NEGATIVE); PROTEIN,URINE NEGATIVE (NEGATIVE); URINE SPECIFIC GRAVITY 1.006; UROBILINOGEN,URINE NEGATIVE mg/dL (<2.0)
[2019-02-17 13:07] LABS: ALANINE AMINOTRANSFERASE 19 U/L (9-52); ALBUMIN 4.8 g/dL (3.5-5.0); ALKALINE PHOSPHATASE 72 U/L (38-126); ANION GAP 12 (5-19); ASPARTATE AMINO TRANSFERASE 18 U/L (14-36); BILIRUBIN,DIRECT 0.2 mg/dL (0.0-0.4); BILIRUBIN,TOTAL 0.5 mg/dL (0.2-1.3); BLOOD UREA NITROGEN 12 mg/dL (7-20); CALCIUM 10.4 mg/dL (8.4-10.2); CARBON DIOXIDE 21 mmol/L (22-30); CHLORIDE 106 mmol/L (98-107); GLUCOSE 113 mg/dL (75-110); POTASSIUM 4.2 mmol/L (3.6-5.0)
--- NOTE | 2019-02-17 13:41 | ER Document Report ---
ED General - General Chief Complaint: Seizure Stated Complaint: POSSIBLE SEZIURES Time Seen by Provider: 02/17/19 12:04 Primary Care Provider: ORIN CARPENTER PA-C [Primary Care Provider] - Follow up as needed Mode of Arrival: Ambulatory TRAVEL OUTSIDE OF THE [place] IN LAST 30 DAYS: No - Related Data Allergies/Adverse Reactions: No Known Allergies Allergy (Verified 02/17/19 11:53) Past Medical History - General Information source: Patient, Relative - Social History Smoking Status: Never Smoker Chew tobacco use (# tins/day): No Frequency of alcohol use: None Drug Abuse: None Family History: Reviewed & Not Pertinent Patient has suicidal ideation: No Patient has homicidal ideation: No Neurological Medical History: Reports: Hx Seizures Renal/ Medical History: Denies: Hx Peritoneal Dialysis Musculoskeletal Medical History: Reports Hx Musculoskeletal Deformity Past Surgical History: Reports: Hx Umbilical Hernia - Immunizations Immunizations up to date: Yes Hx Diphtheria, Pertussis, Tetanus Vaccination: Yes Physical Exam - Vital signs Vitals: Temp Pulse Resp BP Pulse Ox 98.2 F 80 16 122/69 98 02/17/19 12:01 02/17/19 12:01 02/17/19 12:01 02/17/19 12:01 02/17/19 12:01 Course - Vital Signs Vital signs: Temp Pulse Resp BP Pulse Ox 99.0 F 92 20 118/70 95 02/17/19 13:54 02/17/19 13:54 02/17/19 13:54 02/17/19 13:54 02/17/19 13:54 - Laboratory Result Diagrams: 02/17/19 12:16 02/17/19 12:16 Laboratory results interpreted by me: 02/17/19 02/17/19 02/17/19 12:16 12:16 12:16 RBC 5.78 H MCV 67 L MCH 21.3 L MCHC 31.8 L RDW 16.3 H Carbon Dioxide 21 L Glucose 113 H Calcium 10.4 H Urine Ketones 20 H Urine Blood LARGE H Discharge - Discharge Clinical Impression: Breakthrough seizure Condition: Good Disposition: HOME, SELF-CARE Instructions: Seizure, Known Epileptic ([facility]) Additional Instructions: Please talk to your neurologist about getting back on seizure medications. Prescriptions: Lacosamide [Vimpat 100 mg Tablet] 100 mg PO Q12 #10 tablet Levetiracetam [Keppra 500 mg Tablet] 500 mg PO Q12 #60 tablet Referrals: ORIN CARPENTER, DENIS [Primary Care Provider] - Follow up as needed
--- NOTE | 2019-02-17 13:50 | ER Document Report ---
ED General - General Chief Complaint: Seizure Stated Complaint: POSSIBLE SEZIURES Time Seen by Provider: 02/17/19 12:04 Primary Care Provider: ORIN CARPENTER PA-C [Primary Care Provider] - Follow up as needed Mode of Arrival: Ambulatory Notes: 23-year-old female with epilepsy presents with complications from seizure meds. She was taking medications prior, and her neurologist Dr. Herrera had stopped them and started a new drug 2 weeks ago. Since then she has been fatigued and is having more seizures, both small and large. Her mother self titrated her back onto Keppra and Vimpat 2 days ago and the seizures have now stopped however "her eyes do not look right." The patient has minimal complaints right now. She was seen in triage and workup was ordered. She has not seized while in the emergency department. Apparently did try to call Dr. Herrera's office but he is out of town. TRAVEL OUTSIDE OF THE [place] IN LAST 30 DAYS: No - Related Data Allergies/Adverse Reactions: No Known Allergies Allergy (Verified 02/17/19 11:53) Past Medical History - General Information source: Patient, Relative - Social History Smoking Status: Never Smoker Chew tobacco use (# tins/day): No Frequency of alcohol use: None Drug Abuse: None Family History: Reviewed & Not Pertinent Patient has suicidal ideation: No Patient has homicidal ideation: No Neurological Medical History: Reports: Hx Seizures Renal/ Medical History: Denies: Hx Peritoneal Dialysis Musculoskeletal Medical History: Reports Hx Musculoskeletal Deformity Past Surgical History: Reports: Hx Umbilical Hernia - Immunizations Immunizations up to date: Yes Hx Diphtheria, Pertussis, Tetanus Vaccination: Yes Review of Systems - Review of Systems Notes: REVIEW OF SYSTEMS GEN: Denies fever, chills, weight loss ENT: Denies sore throat, nasal discharge, ear pain EYES: Denies blurry vision, eye pain, discharge CV: Denies chest pain, palpitations, edema RESP: Denies cough, shortness of breath, wheezing GI: Denies abdominal pain, nausea, vomiting, diarrhea MSK: Denies joint pain/swelling, edema, SKIN: Denies rash, skin lesions LYMPH: Denies swollen glands/lymph nodes NEURO: Seizures. Enies headache, focal weakness or numbness, dizziness PSYCH: Denies depression, suicidal or homicidal ideation PHYSICAL EXAMINATION General: No acute distress, well-nourished Head: Atraumatic, normocephalic ENT: Mouth normal, oropharynx moist, no exudates or tonsillar enlargement Eyes: Conjunctiva normal, pupils equal, lids normal Neck: No JVD, supple, no guarding CVS: Normal rate, regular rhythm, no murmurs Resp: No resp distress, equal and normal breath sounds bilaterally GI: Nondistended, soft, no tenderness to palpation, no rebound or guarding Ext: No deformities, no edema, normal range of motion in upper and lower ext Back: No CVA or midline TTP Skin: No rash, warm Lymphatic: No lymphadeopathy noted Neuro: Awake, alert. Face symmetric. GCS 15. Physical Exam - Vital signs Vitals: Temp Pulse Resp BP Pulse Ox 98.2 F 80 16 122/69 98 02/17/19 12:01 02/17/19 12:01 02/17/19 12:01 02/17/19 12:01 02/17/19 12:01 Course - Re-evaluation Re-evalutation: 02/17/19 13:49 Patient presents with breakthrough seizures now better since mom is restarted her old seizure drugs. She is not having seizures in the ED. She has a normal set of labs. Her neurologic exam is normal. I did call Dr. Herrera but he was out of his office. The mom is asking for a Vimpat prescription, and I think that this is probably reasonable given that it stopping her seizures although I did warn her against the increasing side effects. They will follow-up with Dr. Herrera when he gets back into town. I have discussed with the patient there likely diagnosis, aftercare plan, follow-up plans and my usual and customary return precautions. They verbalized understanding of this. - Vital Signs Vital signs: Temp Pulse Resp BP Pulse Ox 98.2 F 80 16 122/69 98 02/17/19 12:01 02/17/19 12:01 02/17/19 12:01 02/17/19 12:01 02/17/19 12:01 - Laboratory Result Diagrams: 02/17/19 12:16 02/17/19 12:16 Laboratory results interpreted by me: 02/17/19 02/17/19 02/17/19 12:16 12:16 12:16 RBC 5.78 H MCV 67 L MCH 21.3 L MCHC 31.8 L RDW 16.3 H Carbon Dioxide 21 L Glucose 113 H Calcium 10.4 H Urine Ketones 20 H Urine Blood LARGE H Discharge - Discharge Clinical Impression: Breakthrough seizure Condition: Good Disposition: HOME, SELF-CARE Instructions: Seizure, Known Epileptic ([facility]) Additional Instructions: Please talk to your neurologist about getting back on seizure medications. Prescriptions: Lacosamide [Vimpat 100 mg Tablet] 100 mg PO Q12 #10 tablet Referrals: ORIN CARPENTER PA-C [Primary Care Provider] - Follow up as needed
[2019-02-17 13:56] VITALS: BP 118/70
== END 2019-02-17 14:13 | disposition home or self-care (01) ==
LOC: ER 11:46
DX: G40.909 Epilepsy, unspecified, not intractable, without status epilepticus (principal); Z79.899 Other long term (current) drug therapy; R53.83 Other fatigue
CPT/HCPCS: 36415; 80053; 81001; 83735; 85025; 99284

== ENCOUNTER 2019-03-06 09:12 | Emergency (ER) | payer MEDICAID ==
--- NOTE | 2019-03-06 09:48 | ER Document Report ---
ED Medical Screen (RME) - General Chief Complaint: Foreign Body in Vagina Stated Complaint: VAGINAL ISSUE Time Seen by Provider: 03/06/19 09:45 Notes: Patient is a 23-year-old female presents to the emergency department for potential vaginal foreign body. Patient states she was on her menstrual cycle, placed a tampon in her vaginal canal last evening. States after that she had sexual intercourse. Since then she has noticed no vaginal bleeding. She is unsure of the tampon is still lodged in her vaginal canal. Patient is denying any abdominal pain, vaginal bleeding or discharge. GENERAL: Alert, interacts well. No acute distress. ABDOMEN: Soft, non-tender. Non-distended. Bowel sounds present in all 4 quadrants. I have greeted and performed a rapid initial assessment of this patient. A comprehensive ED assessment and evaluation of the patient, analysis of test results and completion of the medical decision making process will be conducted by additional ED providers. TRAVEL OUTSIDE OF THE [place] IN LAST 30 DAYS: No - Related Data Allergies/Adverse Reactions: No Known Allergies Allergy (Verified 03/06/19 09:14) Past Medical History - Social History Frequency of alcohol use: None Drug Abuse: None Family history: Reviewed & Not Pertinent Neurological Medical History: Reports: Hx Seizures Renal/ Medical History: Denies: Hx Peritoneal Dialysis Musculoskeltal Medical History: Reports Hx Musculoskeletal Deformity Past Surgical History: Reports: Hx Umbilical Hernia - Immunizations Immunizations up to date: Yes Hx Diphtheria, Pertussis, Tetanus Vaccination: Yes History of Influenza Vaccine for 08/2017 - 01/2018 Season: No Physical Exam - Vital signs Vitals: Temp Pulse Resp BP Pulse Ox 98.0 F 70 20 126/62 H 98 03/06/19 09:19 03/06/19 09:19 03/06/19 09:19 03/06/19 09:19 03/06/19 09:19 Course - Vital Signs Vital signs: Temp Pulse Resp BP Pulse Ox 98.0 F 70 20 126/62 H 98 03/06/19 09:19 03/06/19 09:19 03/06/19 09:19 03/06/19 09:19 03/06/19 09:19
--- NOTE | 2019-03-06 10:36 | ER Document Report ---
ED General - General Chief Complaint: Foreign Body in Vagina Stated Complaint: VAGINAL ISSUE Time Seen by Provider: 03/06/19 09:45 Primary Care Provider: MYRNA MILLAN MD [Primary Care Provider] - Follow up as needed Notes: Patient thinks she has a retained tampon in her vagina. Says she last inserted a tampon last night. She also had sex with her boyfriend and not sure if she removed the tampon before that. Has no complaints of any discharge or vaginal pain. No fevers. TRAVEL OUTSIDE OF THE [place] IN LAST 30 DAYS: No - Related Data Allergies/Adverse Reactions: No Known Allergies Allergy (Verified 03/06/19 09:14) Past Medical History - Social History Smoking Status: Never Smoker Frequency of alcohol use: None Drug Abuse: None Family History: Reviewed & Not Pertinent Patient has suicidal ideation: No Patient has homicidal ideation: No - Medical History Medical History: Negative Neurological Medical History: Reports: Hx Seizures Musculoskeletal Medical History: Reports Hx Musculoskeletal Deformity Past Surgical History: Reports: Hx Umbilical Hernia - Immunizations Immunizations up to date: Yes Hx Diphtheria, Pertussis, Tetanus Vaccination: Yes Review of Systems - Review of Systems Notes: CONSTITUTIONAL : Denies fever. CARDIOVASCULAR: Denies chest pain. RESPIRATORY: Denies cough, chest congestion, or shortness of breath. GASTROINTESTINAL: Denies abdominal pain or nausea, vomiting, or diarrhea. GENITOURINARY: Denies difficulty or painful urinating, urinary frequency, blood in urine. Physical Exam - Vital signs Vitals: Temp Pulse Resp BP Pulse Ox 98.0 F 70 20 126/62 H 98 03/06/19 09:19 03/06/19 09:19 03/06/19 09:19 03/06/19 09:19 03/06/19 09:19 Interpretation: No: Febrile Notes: PHYSICAL EXAMINATION: GENERAL: Well-appearing, no acute distress. HEAD: Atraumatic, normocephalic. NECK: Normal range of motion, supple. LUNGS: Breath sounds clear and equal bilaterally. HEART: Regular rate and rhythm without murmurs heard. ABDOMEN: Soft, nontender. No guarding or rebound or masses felt. Speculum exam of the vagina reveals a tampon in the deepest part of the vagina. With ring forceps, I was able to snag enough of the tampon to gently pull it out intact. Looked inside the vagina after the procedure and there was no other retained foreign bodies or other material in the vagina. Course - Vital Signs Vital signs: Temp Pulse Resp BP Pulse Ox 97.9 F 74 14 121/60 100 03/06/19 10:41 03/06/19 10:41 03/06/19 10:41 03/06/19 10:41 03/06/19 10:41 Discharge - Discharge Clinical Impression: Retained tampon Condition: Stable Disposition: HOME, SELF-CARE Additional Instructions: Retained tampon He had a retained tampon which has been removed. There are no other tampons present. There is no evidence of infection. Return if you begin to run a fever or have a vaginal discharge. Referrals: MYRNA MILLAN MD [Primary Care Provider] - Follow up as needed
[2019-03-06 10:42] VITALS: BP 121/60
== END 2019-03-06 10:43 | disposition home or self-care (01) ==
LOC: ER 09:12
DX: T19.2XXA Foreign body in vulva and vagina, initial encounter (principal); X58.XXXA Exposure to other specified factors, initial encounter
CPT/HCPCS: 99283

== ENCOUNTER 2019-09-15 09:27 | Emergency (ER) | payer MEDICAID ==
--- NOTE | 2019-09-15 11:27 | ER Document Report ---
HPI - HPI Time Seen by Provider: 09/15/19 10:03 Pain Level: 3 Notes: Patient is an otherwise healthy 24-year-old female presenting to the emergency department with chief complaint of sore throat and nasal congestion that started 2 days ago. Patient reports pain when swallowing but states that she is able to swallow without difficulty. Patient denies any fevers or cough. - CONSTITUTIONAL Constitutional: DENIES: Fever, Chills - EENT EENT: REPORTS: Sore Throat - REPRODUCTIVE Reproductive: DENIES: : Past Medical History - Social History Smoking Status: Unknown if Ever Smoked Family History: Reviewed & Not Pertinent Patient has suicidal ideation: No Patient has homicidal ideation: No Neurological Medical History: Reports: Hx Seizures Renal/ Medical History: Denies: Hx Peritoneal Dialysis Musculoskeletal Medical History: Reports Hx Musculoskeletal Deformity Past Surgical History: Reports: Hx Umbilical Hernia - Immunizations Immunizations up to date: Yes Hx Diphtheria, Pertussis, Tetanus Vaccination: Yes Vertical Provider Document - CONSTITUTIONAL Notes: PHYSICAL EXAMINATION: GENERAL: Well-appearing, well-nourished and in no acute distress. HEAD: Atraumatic, normocephalic. EYES: Pupils equal round extraocular movements intact, conjunctiva are normal. ENT: Nares patent, oropharynx clear, no tonsillar swelling, erythema or exudates noted, uvula midline. NECK: Normal range of motion, no cervical lymphadenopathy. LUNGS: No respiratory distress, lung sounds clear and equal. Musculoskeletal: Normal range of motion NEUROLOGICAL: Normal speech, normal gait. PSYCH: Normal mood, normal affect. SKIN: Warm, Dry, normal turgor, no rashes or lesions noted. - INFECTION CONTROL TRAVEL OUTSIDE OF THE [place] IN LAST 30 DAYS: No Course - Re-evaluation Re-evalutation: Patient appears well, nontoxic, vital signs within normal limits. No evidence of peritonsillar abscess. Rapid strep is negative. Patient cleared for discharge home. Patient understands throat culture pending. Discussed conservative treatment at home. ED return precautions discussed. The patient's emergency department workup and current diagnosis were explained to the patient and or family. Follow-up instructions were provided. Medications if prescribed were discussed. Instructions for when to return to the emergency department including specific worrisome symptoms were discussed with the patient and/or family. - Vital Signs Vital signs: Temp Pulse Resp BP Pulse Ox 98.1 F 70 16 128/62 H 100 09/15/19 09:52 09/15/19 09:52 09/15/19 09:52 09/15/19 09:52 09/15/19 09:52 Discharge - Discharge Clinical Impression: Sore throat, Viral illness Condition: Stable Disposition: HOME, SELF-CARE Additional Instructions: SORE THROAT: Sore throats may be caused by viruses, bacteria, or fungi. Most are due to a virus, and must get better on their own. Bacterial sore throats, particularly those due to "strep," need treatment with antibiotics. If an antibiotic is prescribed, be sure to take the medication for a full 10 days. Failure to take the antibiotic can result in complications such as rheumatic fever. Sometimes, an injection of antibiotics is given instead of pills or liquid. This single "shot" is equal in effectiveness to the oral me dication. To relieve symptoms, take acetaminophen for pain. Sip clear liquids frequently, or eat popsicles or ice chips. Anesthetic sprays or lozenges may help. Make sure the air in the room is not too dry. Avoid using decongestants or antihistamines. Call the doctor if there is no improvement in two days, or if you have difficulty breathing, increasing throat pain, high fever, rash, or frequent vomiting. STEROID MEDICATION: You have been given a medicine of the cortisone/steroid class. This medication is used to control inflammation or allergy. It is usually only given for a short period of time, until the acute process subsides. There are usually no side effects from short-term use of cortisone-like medications. Some persons feel an increased sense of well-being and are not sleepy at bedtime. Long-term use of cortisone medications is best avoided, unless required for a severe condition. If your condition does not remit, or relapses after the course of corticosteroid medication, you should consult your physician. FOLLOW-UP CARE: If you have been referred to a physician for follow-up care, call the physicians office for an appointment as you were instructed or within the next two days. If you experience worsening or a significant change in your symptoms, notify the physician immediately or return to the Emergency Department at any time for re-evaluation. Please continue to take Tylenol or ibuprofen for any fever, body aches or sore throat pain. Drink plenty of fluids. No work for the next 2 days. Get plenty of rest. Follow-up with your primary care provider if not improving over the next 3 to 5 days. Return to the emergency department with any new or worsening symptoms. Prescriptions: Prednisone [Deltasone 20 mg Tablet] 3 tab PO DAILY 5 Days #15 tablet Forms: Return to School, Return to Work Referrals: CESAR SERNA DO [Primary Care Provider] - Follow up as needed
[2019-09-15 11:36] VITALS: BP 117/64
== END 2019-09-15 11:36 | disposition home or self-care (01) ==
LOC: ER 09:27
DX: J02.9 Acute pharyngitis, unspecified (principal); B34.9 Viral infection, unspecified
CPT/HCPCS: 87070; 87880; 99283

== ENCOUNTER 2019-12-15 12:17 | Emergency (ER) | payer MEDICAID ==
[2019-12-15 13:10] VITALS: BP 124/70
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
== END 2019-12-15 13:31 | disposition home or self-care (01) ==
LOC: ER 12:17
DX: S00.37XA Other superficial bite of nose, initial encounter (principal); W50.3XXA Accidental bite by another person, initial encounter; S60.022A Contusion of left index finger without damage to nail, initial encounter; W23.0XXA Caught, crushed, jammed, or pinched between moving objects, initial encounter; S80.01XA Contusion of right knee, initial encounter; W01.0XXA Fall on same level from slipping, tripping and stumbling without subsequent striking against object, initial encounter; R23.8 Other skin changes
CPT/HCPCS: 99283

== ENCOUNTER 2020-01-16 12:26 | Emergency (ER) | payer MEDICAID ==
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
[2020-01-16 15:21] VITALS: BP 124/66
== END 2020-01-16 15:22 | disposition home or self-care (01) ==
LOC: ER 12:26
DX: S00.83XA Contusion of other part of head, initial encounter (principal); R68.84 Jaw pain; Y09 Assault by unspecified means
CPT/HCPCS: 70110; 99283

== ENCOUNTER 2020-04-01 22:26 | Emergency (ER) | payer MEDICAID ==
[2020-04-01 22:42] VITALS: BP 146/69
[2020-04-01] MEDS ORDERED: HYDROCODONE/ACETAMINOPHEN 5-325 MG (6 TAB/ER DISP) PO PRN (23:22)
--- NOTE | 2020-04-01 23:28 | ER Document Report ---
ED Oral Problem - General Chief Complaint: Mouth Burn Stated Complaint: POST DENTAL PROCEDURE PAIN Time Seen by Provider: 04/01/20 23:19 Primary Care Provider: CESAR SERNA DO [Primary Care Provider] - Follow up as needed Notes: CHIEF COMPLAINT: Dental pain post filling HPI: 25-year-old female presenting with left lower dental pain after a filling today. States that she had a filling done at 930 this morning, call the dental office approximately an hour after the filling was done to tell them she was having increasing pain through the area, states she was told that they could not do anything about her pain and she would have to take [id number] medications. She states she did not know what to do because the pain continues to worsen so she decided to come to the emergency department. ROS: See HPI - all other systems were reviewed and are otherwise negative Constitutional: no fever Eyes: no drainage, no blurred vision ENT: no runny nose, no sore throat, positive dental pain MEDICATIONS: I agree with the patient medications as charted by the RN. ALLERGIES: I agree with the allergies as charted by the RN. PAST MEDICAL HISTORY/PAST SURGICAL HISTORY: Reviewed and agree as charted by RN. SOCIAL HISTORY: Reviewed and agree as charted by RN. FAMILY HISTORY: No significant familial comorbid conditions directly related to patient complaint EXAM: Reviewed vital signs as charted by RN. CONSTITUTIONAL: Alert and oriented and responds appropriately to questions. Well-appearing; well-nourished HEAD: Normocephalic; atraumatic EYES: PERRL; Conjunctivae clear, sclerae non-icteric ENT: normal nose; no rhinorrhea; moist mucous membranes; pharynx without lesions noted, no uvula edema or deviation, no tonsillar hypertrophy, phonation normal. No angioedema. Filling is noted in the left lower second molar. No sublingual swelling. No gingival swelling. Mild left facial swelling is noted NECK: Supple without meningismus; non-tender; no cervical lymphadenopathy, no masses CARD: Capillary refill less than 3 seconds; symmetric distal pulses RESP: Normal chest excursion without splinting or tachypnea ABD/GI: non-distended BACK: The back appears normal EXT: Normal ROM in all joints; no cyanosis, no effusions, no edema SKIN: Normal color for age and race; warm; dry; good turgor NEURO: Moves all extremities equally; Motor and sensory function intact PSYCH: The patient's mood and manner are appropriate. Grooming and personal hygiene are appropriate. MDM: 25-year-old female presenting with dental pain after a dental procedure this morning. Patient was reviewed on the [place] narcotics database finding 1 entry in December of this year for oxycodone written by a dentist. This was apparently not the dentist she saw today. We will give the patient a short course of pain medication, instruction to follow-up in the dental office for reevaluation of her symptoms TRAVEL OUTSIDE OF THE [place] IN LAST 30 DAYS: No - Related Data Allergies/Adverse Reactions: No Known Allergies Allergy (Verified 03/06/19 09:14) Home Medications: [email or web address]. [email or web address] Past Medical History - Social History Smoking Status: Never Smoker Frequency of alcohol use: Rare Drug Abuse: None Family History: Reviewed & Not Pertinent Patient has homicidal ideation: No Neurological Medical History: Reports: Hx Seizures Renal/ Medical History: Denies: Hx Peritoneal Dialysis Musculoskeletal Medical History: Reports Hx Musculoskeletal Deformity Past Surgical History: Reports: Hx Umbilical Hernia - Immunizations Immunizations up to date: Yes Hx Diphtheria, Pertussis, Tetanus Vaccination: Yes Physical Exam - Vital signs Vitals: Temp Pulse Resp BP Pulse Ox 98.6 F 71 18 146/69 H 99 04/01/20 22:41 04/01/20 22:41 04/01/20 22:41 04/01/20 22:41 04/01/20 22:41 Course - Vital Signs Vital signs: Temp Pulse Resp BP Pulse Ox 98.2 F 71 18 146/69 H 99 04/01/20 23:10 04/01/20 22:41 04/01/20 22:41 04/01/20 22:41 04/01/20 22:41 Discharge - Discharge Clinical Impression: Pain, dental Condition: Stable Disposition: HOME, SELF-CARE Additional Instructions: Call the office of the dentist who performed the procedure to request reevaluation. They may need to adjust the filling they placed to help with your discomfort. Prescriptions: Hydrocodone/Acetaminophen [[place] 5-325 mg Tablet] 1 tab PO Q6HP PRN #10 tablet PRN Reason: Referrals: CESAR SERNA DO [Primary Care Provider] - Follow up as needed
== END 2020-04-01 23:20 | disposition home or self-care (01) ==
LOC: ER 22:26
DX: K08.89 Other specified disorders of teeth and supporting structures (principal); R22.0 Localized swelling, mass and lump, head; R56.9 Unspecified convulsions; Z98.890 Other specified postprocedural states; Z79.899 Other long term (current) drug therapy
CPT/HCPCS: 99282

== ENCOUNTER 2020-08-12 14:36 | Emergency (ER) | payer MEDICAID ==
[2020-08-12 14:41] VITALS: BP 137/69
[2020-08-12] MEDS ORDERED: IBUPROFEN 800 MG TABLET PO ONE (14:47)
[2020-08-12] MEDS ORDERED: LIDOCAINE 2% VISCOUS SOLN 15 ML UDCUP PO ONE (14:47)
--- NOTE | 2020-08-12 14:53 | ER Document Report ---
ED Oral Problem - General Chief Complaint: Toothache Stated Complaint: TOOTH PAIN Time Seen by Provider: 08/12/20 14:41 Primary Care Provider: MYRNA MILLAN MD [Primary Care Provider] - Follow up as needed TRAVEL OUTSIDE OF THE [place] IN LAST 30 DAYS: No - HPI Patient complains to provider of: Jaw pain Onset: Other - Since March Quality of pain: Sharp Severity: Severe Pain Level: 5 Associated symptoms: Jaw pain Worsened by: Nothing Relieved by: Nothing Similar symptoms previously: Yes Recently seen / treated by doctor/dentist: No - Related Data Allergies/Adverse Reactions: No Known Allergies Allergy (Verified 08/12/20 14:41) Past Medical History - General Information source: Patient - Social History Smoking Status: Never Smoker Chew tobacco use (# tins/day): No Frequency of alcohol use: Occasional Drug Abuse: None Lives with: Family Family History: Reviewed & Not Pertinent Patient has suicidal ideation: No Patient has homicidal ideation: No - Past Medical History Cardiac Medical History: Reports: None Pulmonary Medical History: Reports: None EENT Medical History: Reports: None Neurological Medical History: Reports: Hx Seizures Endocrine Medical History: Reports: None Renal/ Medical History: Reports: None Malignancy Medical History: Reports: None GI Medical History: Reports: None Musculoskeletal Medical History: Reports Hx Musculoskeletal Deformity Skin Medical History: Reports None Psychiatric Medical History: Reports: None Traumatic Medical History: Reports: None Infectious Medical History: Reports: None Past Surgical History: Reports: Hx Oral Surgery - [facility] teeth, Other - Ventral hernia - Immunizations Immunizations up to date: Yes Hx Diphtheria, Pertussis, Tetanus Vaccination: Yes Review of Systems - Review of Systems Constitutional: No symptoms reported EENT: No symptoms reported, Other - Jaw pain posterior left lower jaw Cardiovascular: No symptoms reported Respiratory: No symptoms reported Gastrointestinal: No symptoms reported Genitourinary: No symptoms reported Female Genitourinary: No symptoms reported Musculoskeletal: No symptoms reported Skin: No symptoms reported Hematologic/Lymphatic: No symptoms reported Neurological/Psychological: No symptoms reported -: Yes All other systems reviewed and negative Physical Exam - Vital signs Vitals: Temp Pulse Resp BP Pulse Ox 98.5 F 75 20 137/69 H 99 08/12/20 14:40 08/12/20 14:40 08/12/20 14:40 08/12/20 14:40 10/01/20 14:40 Interpretation: Normal - General General appearance: Appears well, Alert - HEENT Head: Normocephalic, Atraumatic Eyes: Normal Pupils: PERRL Ears: Normal External canal: Normal Tympanic membrane: Normal Sinus: Normal Nasal: Normal Mouth/Lips: Normal Mucous membranes: Normal Teeth diagram: 1 - Tenderness but no cavity no redness no swelling no abscess Pharynx: Normal Neck: Normal - Respiratory Respiratory status: No respiratory distress Chest status: Nontender Breath sounds: Normal Chest palpation: Normal - Cardiovascular Rhythm: Regular Heart sounds: Normal auscultation Murmur: No - Abdominal Inspection: Normal Distension: No distension Bowel sounds: Normal Tenderness: Nontender Organomegaly: No organomegaly - Back Back: Normal, Nontender - Extremities General upper extremity: Normal inspection, Nontender, Normal color, Normal ROM, Normal temperature General lower extremity: Normal inspection, Nontender, Normal color, Normal ROM, Normal temperature, Normal weight bearing. No: Dudley's sign - Neurological Neuro grossly intact: Yes Cognition: Normal Orientation: AAOx4 Christophe Coma Scale Eye Opening: Spontaneous [place] Coma Scale Verbal: Oriented [place] Coma Scale Motor: Obeys Commands [place] Coma Scale Total: 15 Speech: Normal Motor strength normal: LUE, RUE, LLE, RLE Sensory: Normal - Psychological Associated symptoms: Normal affect, Normal mood - Skin Skin Temperature: Warm Skin Moisture: Dry Skin Color: Normal Course - Re-evaluation Re-evalutation: 08/12/20 14:58 Patient was given viscous lidocaine and a syringe to use on the pain to the jaw. Patient did use it in the emergency room stated it did help with the pain. She was instructed to please follow-up with her primary care. She was also instructed to follow-up with the dentist who did her wisdom teeth removal. Patient verbalized understanding and agreement treatment plan and patient was discharged home. - Vital Signs Vital signs: Temp Pulse Resp BP Pulse Ox 98.5 F 75 20 137/69 H 99 08/12/20 14:40 08/12/20 14:40 08/12/20 14:40 08/12/20 14:40 08/12/20 14:40 Discharge - Discharge Clinical Impression: Dental pain left lower jaw Condition: Stable Disposition: HOME, SELF-CARE Additional Instructions: TOOTHACHE: Your pain you state is due to previous dental surgery. You will, therefore, be referred to a dentist. We do not have dentists on the staff at [facility]. You should be rechecked immediately if you develop major swelling of the face, increasing pain, a lump in the jaw or gums, headache, difficulty swal lowing, or fever. Ibuprofen Ibuprofen is an excellent, safe drug for pain control. In addition, it has potent antiinflammatory effects which are beneficial, especially in the treat ment of injuries, arthritis, or tendonitis. It's best to take ibuprofen with food. Persons with ulcer disease or allergy to aspirin should notify their physician of this before taking ibuprofen. Take the medication exactly as prescribed. Don't take additional doses unless instructed to do so by your doctor. If you develop wheezing, shortness of breath, hives, faintness, stomach pain, vomiting, or dark black stools, return for re-evaluation at once. You were given a syringe of viscous lidocaine. This can cause some numbness to the tongue and the cheek should be careful not to chew your tongue or teeth or gum. Please place a small amount on your finger relative to the tooth and gums that are painful. Please do not do this any more often than every 4 hours or it will erode the skin on your gums and can cause you more pain. Acetaminophen Acetaminophen may be taken for pain relief or fever control. It's much safer than aspirin, offering a wider range of "safe" dosages. It is safe during . Some brand names are Tylenol, Panadol, Datril, Anacin 3, Tempra, and Liquiprin. Acetaminophen can be repeated every four hours. The following are maximum recommended dosages: WEIGHT Dose Drops Elixir Chewable(80mg) (LBS.) drprs=droppers tsp=teaspoon 6 40 mg .4 ml (1/2) 6-11 80 mg .8 ml (full) 1/2 tsp 1 tab 12-16 120 mg 1 1/2 drprs 3/4 tsp 1 1/2 tabs 17-23 160 mg 2 drprs 1 tsp 2 tabs 24-30 240 mg 3 drprs 1 1/2 tsp 3 tabs 30-35 320 mg 2 tsp 4 tabs 36-41 360 mg 2 1/4 tsp 4 1/2 tabs 42-47 400 mg 2 1/2 tsp 5 tabs 48-53 480 mg 3 tsp 6 tabs 54-59 520 mg 3 1/4 tsp 6 1/2 tabs 60-64 560 mg 3 1/2 tsp 7 tabs 65-70 600 mg 3 3/4 tsp 7 1/2 tabs 71-76 640 mg 4 tsp 8 tabs 77-82 720 mg 4 1/2 tsp 9 tabs 83-88 800 mg 5 tsp 10 tabs >89 pounds or adults 650 mg to 900 mg Acetaminophen can be repeated every four hours. Maximum daily dose not to exceed 4000 mg. These maximum recommended dosages are slightly higher than the dosages written on the product container, but these dosages are very safe and well below the toxic dosage for acetaminophen. FOLLOW-UP CARE: You have been referred for follow-up care to the dentists listed below. Call the dentists office for an appointment as you were instructed or within the next two days. If you experience worsening or a significant change in your symptoms, notify the physician immediately or return to the Emergency Department at any time for re-evaluation. [facility] [address] [place], [place] Sunday mornings, by appointment [facility] [address] [place] [address] [facility] [address] [facility] [address] [facility] [address] [email or web address] [address] [place] [address] Sunday- 8:00am to 5:00 pm Will see patients from other [facility]. Charges based on income and family size and accepts Medicare, Medicaid, and Insurances Will pull molars [facility] [place] [address] Hours of Operation 8:00 am - 4:30 pm weekdays The following dental offices accept Medicaid: [facility] [address]. Re[address] Britton Dr. Davis Dr. Ramesh Andrew [place], [place], and [place] oral [facility] Dr. Og ([place]) Dr. Rivera ([place]) [facility] Drs. Altman and Antonio ([place]) Dr. Schumacher ([place]) [facility] Dr. Fernandez ([place]) Drs. Morales and ([place]) Medicaid Care Line Forms: Elevated Blood Pressure Referrals: MYRNA MILLAN MD [Primary Care Provider] - Follow up as needed DENTISTRY [Provider Group] - Follow up as needed
== END 2020-08-12 14:59 | disposition home or self-care (01) ==
LOC: ER 14:36
DX: K08.89 Other specified disorders of teeth and supporting structures (principal); Z98.890 Other specified postprocedural states
CPT/HCPCS: 99282; J3490 ×2